=== PATIENT | female | born 1985 | race Caucasian/White ===

== ENCOUNTER 2023-10-14 16:08 | Outpatient (OUT) | payer BC, SELFPAY ==
--- NOTE | 2023-10-14 16:24 | US_ITS ---
[place] [address] Patient Name: HAM SOLIMAN MRN: [id number] date: 1985 Sex: F Assigned Patient Location: LAB Current Patient Location: Accession/Order Number: [id number] Exam Date: 10/14/2023 16:25 Report Date: 10/15/2023 07:07 At the request of: CARLTON WILSON Procedure: US venous doppler LE LT EXAM: US venous doppler LE LT HISTORY: pain in left lower leg M79.662, Shortness of breath R06.02 COMPARISON: None. TECHNIQUE: Grayscale, color and Doppler FINDINGS: Region: Left leg Thrombus: None Flow: Normal Augmentation: Normal Compressibility: Normal US/US venous doppler LE LT IMPRESSION: No deep or superficial vein thrombus in the left leg Electronically authenticated by: WILLIAMS SIDDIQI Date: 10/15/2023 07:07
[2023-10-14 16:27] LABS: Basophils Absolute Auto 0.1 10^3/uL (0.0-0.1); Basophils Percent Auto 0.8 % (0.2-2.0); Eosinophils Absolute Auto 0.2 10^3/uL (0.0-0.7); Eosinophils Percent Auto 2.8 % (0.9-7.0); Hematocrit 39.4 % (36.0-48.0); Hemoglobin 13.5 g/dL (12.0-16.0); Immature Granulocytes Abs Auto 0.02 10^3/uL (0.00-0.03); Immature Granulocytes Pct Auto 0.3 % (0.0-0.5); Lymphocytes Absolute Auto 2.2 10^3/uL (1.2-3.8); Lymphocytes Percent Auto 29.4 % (20.5-60.0); Mean Corpuscular HGB Conc 34.3 g/dL (29.9-35.2); Mean Corpuscular Hemoglobin 32.1 pg (26.7-34.0); Mean Corpuscular Volume 93.8 fL (81.0-99.0); Mean Platelet Volume 11.3 fL (9.5-13.5); Monocytes Absolute Auto 0.7 10^3/uL (0.3-0.8); Neutrophils Absolute Auto 4.3 10^3/uL (1.4-6.5); Neutrophils Percent Auto 57.7 % (43.0-75.0); Platelet Count 265 10^3/uL (150-450); Red Cell Distribution Width 12.4 % (11.0-15.0); White Blood Count 7.5 10^3/uL (4.0-11.0)
[2023-10-14 16:45] LABS: Anion Gap 9.9; BUN Creatinine Ratio 11.1; Calcium 8.8 mg/dL (8.5-10.1); Carbon Dioxide 30.8 mmol/L (21.0-32.0); Chloride 104 mmol/L (98-107); D Dimer 0.24 mg/L FEU (<=0.59); Estimated GFR (African America >60 (>=60); Estimated GFR (Non-African Ame >60 (>=60); Glucose 109 mg/dL (74-106); Potassium 3.7 mmol/L (3.5-5.1); Sodium 141 mmol/L (136-145)
== END 2023-10-14 16:09 | disposition home or self-care (01) ==
LOC: LAB 16:12
PROVIDERS: PCP Internal Medicine; Visit Provider Internal Medicine
DX: M79.662 Pain in left lower leg (principal); R06.02 Shortness of breath
CPT/HCPCS: 36415; 80048; 85025; 85378; 93971

== ENCOUNTER 2024-01-03 09:27 | Outpatient (OUT) | payer BC, SELFPAY ==
--- NOTE | 2024-01-03 09:34 | XR_ITS ---
The [address] [address] Patient Name: HAM SOLIMAN MRN: [id number] date: 1985 Sex: F Assigned Patient Location: [facility] Current Patient Location: [facility] Accession/Order Number: [id number] Exam Date: 01/03/2024 09:39 Report Date: 01/03/2024 14:32 At the request of: CARLTON WILSON Procedure: XR foot LT min 3V PROCEDURE: XR ankle LT min 3V, XR foot LT min 3V HISTORY: Left Foot Pain M79.672 ; left foot and ankle swelling, bruising; no known injury COMPARISON: None. FINDINGS: BONES:Separate corticated ossification adjacent the tip of the medial malleolus favoring sequela of remote injury. Intact ankle joint without appreciable narrowing. No fracture, dislocation, bone lesion. SOFT TISSUES:Distal dorsal soft tissue swelling. EFFUSION:None visible. OTHER: Negative. XR/XR foot LT min 3V IMPRESSION: 1. No acute bone abnormality of the foot or ankle. 2. No significant degenerative joint disease. Electronically authenticated by: JUAN PABLO DESAI Date: 01/03/2024 14:32
--- NOTE | 2024-01-03 09:34 | XR_ITS ---
The [address] [address] Patient Name: HAM SOLIMAN MRN: [id number] date: 1985 Sex: F Assigned Patient Location: [facility] Current Patient Location: [facility] Accession/Order Number: [id number] Exam Date: 01/03/2024 09:39 Report Date: 01/03/2024 14:32 At the request of: CARLTON WILSON Procedure: XR ankle LT min 3V PROCEDURE: XR ankle LT min 3V, XR foot LT min 3V HISTORY: Left Foot Pain M79.672 ; left foot and ankle swelling, bruising; no known injury COMPARISON: None. FINDINGS: BONES:Separate corticated ossification adjacent the tip of the medial malleolus favoring sequela of remote injury. Intact ankle joint without appreciable narrowing. No fracture, dislocation, bone lesion. SOFT TISSUES:Distal dorsal soft tissue swelling. EFFUSION:None visible. OTHER: Negative. XR/XR ankle LT min 3V IMPRESSION: 1. No acute bone abnormality of the foot or ankle. 2. No significant degenerative joint disease. Electronically authenticated by: JUAN PABLO DESAI Date: 01/03/2024 14:32
--- OUTSIDE RECORDS SUMMARY | 2024-01-03 09:49 | XMS_ITS | CCD ---
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 Name Role Phone VaneJessica Unavailable REQUEST, DR GARCIA LISTED Admitting Unavaila ble REQUEST, DR GARCIA LISTED Consulting Unavaila ble REQUEST, DR GARCIA LISTED Attending Unavaila ble STEVE, DR VINCENT Primary Care Unavailable MISC, DOCTOR Attending Unavailable STEVE, DR VINCENT Primary Care Unavailable MISC, DR DUPREE Admitting Unavailable MISC, DR DUPREE Admitting Unavailable MISC, DR DUPREE Consulting Unavailable MISC, DR DUPREE Attending Unavailable STEVE, DR VINCENT Primary Care Unavailable ZIEBBLOSSOM, DR SG Echeverria Consulting Unavailable Agustin Mendez Unavailable Rom RICH Attending Unavailable Medications Current Medications Medication Drug Class(es) Dates Sig (Normalized) Sig (Original) estrogens, conjugated (detention) 0.45 mg oral tablet (5 sources) Estrogen Start: 01-02-2024 take 0.45 mg by mouth once daily Conjugated Estrogens Active 0.45 MG PO Daily January 02, 2024 12:00am take 1 tablet by flory th every twenty-four hours Premarin 0.45 MG 1 tablet Orally Once a day Active omeprazole 20 mg delayed release oral capsule (1 source) Proton Pump Inhibitor Start: 01-03-2024 take 20 mg by mouth once daily Omeprazole Active 20 MG PO Daily January 03, 2024 12:00am Completed/Discontinued Medications Medication Drug Class(es) Dates Sig (Normalized) Sig (Original) 24 hr buPROPion hydrochloride 300 mg extended release oral tablet (4 sources) Aminoketone take 1 tablet by flory th every twenty-four hours buPROPion HCl ER (XL) 300 MG 1 tablet in the morning Orally Once a day Not-Taking/PRN Problems Active Problems Problem Classification Problem Date Documented Date Episodic/Chronic Abdominal pain (11 sources) Left lower quadrant pain; Translations: [Left lower quadrant pain] Onset: 01-18-2017 Episodic Acute and chronic tonsillitis (5 sources) Hypertrophy of tonsils; Translations: [Hypertrophy of tonsils] Chronic Acute bronchitis (4 sources) Acute bronchitis; Translations: [Acute bronchitis due to other specified organisms] Episodic Chronic obstructive pulmonary disease and bronchiectasis (2 sources) Acute exacerbation of chronic obstructive airways disease; Translations: [Chronic obstructive pulmonary disease with (acute) exacerbation] Onset: 09-15-2018 Chronic Complications of surgical procedures or medical care (6 sources) Postsurgical menopause; Translations: [Asymptomatic postprocedural ovarian failure] Chronic Contraceptive and procreative management (6 sources) Contraception care education done; Translations: [Encounter for initial prescription of contraceptive pills] Episodic Endometriosis (2 sources) Endometriosis of pelvic peritoneum; Translations: [Endometriosis of pelvic peritoneum] Chronic Immunizations and screening for infectious disease (4 sources) Sexually transmitted infectious disease; Translations: [Encounter for screening for infections with a predominantly sexual mode of transmission] Episodic Inflammatory diseases of female pelvic organs (4 sources) Acute vaginitis; Translations: [Acute vaginitis] Onset: 01-02-2015 Episodic Malaise and fatigue (6 sources) Fatigue; Translations: [Other fatigue] Episodic Menstrual disorders (4 sources) Dysmenorrhea; Translations: [Dysmenorrhea, unspecified] Chronic Mood disorders (6 sources) Mild recurrent major depression; Translations: [Major depressive disorder, recurrent, mild] Chronic Nonmalignant breast conditions (6 sources) O/E-breast lump-lower out-quad; Translations: [Unspecified lump in the left breast, lower outer quadrant] Episodic Other aftercare (1 source) Other intermediate manager (current) drug therapy Episodic Other connective tissue disease (1 source) Pain in left lower leg Episodic Other connective tissue disease (1 source) Foot pain; Translations: [Pain in left foot] 01-03-2024 Episodic Other ear and sense organ disorders (2 sources) Infection of external ear; Translations: [Other acute infections of external ear] Onset: 04-20-2014 Chronic Other female genital disorders (1 source) Unspecified dyspareunia; Translations: [UNSPECIFIED DYSPAREUNIA] Onset: 11-05-2022 Chronic Other female genital disorders (2 sources) Abnormal vaginal bleeding; Translations: [Other specified abnormal uterine and vaginal bleeding] Chronic Other female genital disorders (4 sources) History of endometriosis; Translations: [Personal history of other diseases of the female genital tract] Episodic Other female genital disorders (2 sources) Disorder of female genital system; Translations: [Personal history of other diseases of the female genital tract] Episodic Other female genital disorders (2 sources) Noninflammatory disorder of the vagina; Translations: [Other specified noninflammatory disorders of vagina] Episodic Other lower respiratory disease (1 source) Shortness of breath Episodic Other screening for suspected conditions (not mental disorders or infectious disease) (10 sources) Mammography abnormal; Translations: [Other abnormal and inconclusive findings on diagnostic imaging of breast] Onset: 11-01-2022 Episodic Other upper respiratory infections (2 sources) Acute maxillary sinusitis; Translations: [Acute recurrent maxillary sinusitis] Episodic Residual codes; unclassified (1 source) Family history of malignant neoplasm of breast; Translations: [FAMILY HX MALIG NEOPLASM OF BREAST] Onset: 11-05-2022 Episodic Residual codes; unclassified (1 source) Family history of malignant neoplasm of digestive organs; Translations: [FAM HX MALIG NEOPLASM DIGESTIV ORGN] Onset: 11-05-2022 Episodic Residual codes; unclassified (2 sources) Postprocedural state finding; Translations: [Other specified postprocedural states] Episodic Substance-related disorders (4 sources) Nicotine dependence; Translations: [Nicotine dependence, cigarettes, with other nicotine-induced disorders] Onset: 03-19-2018 Chronic Urinary tract infections (2 sources) Chronic interstitial cystitis; Translations: [Interstitial cystitis (chronic) without hematuria] Chronic Past or Other Problems Problem Classification Problem Date Documented Da te Episodic/Chronic Ectopic (2 sources) Right tubal without intrauterine ; Translations: [Right tubal without intrauterine ] Onset: 09-23-2009 Episodic Endometriosis (4 sources) Endometriosis; Translations: [Endometriosis of pelvic peritoneum, unspecified] Genitourinary symptoms and ill-defined conditions (2 sources) Dysuria; Translations: [Dysuria] Onset: 04-20-2014 Episodic Other connective tissue disease (2 sources) Pain in limb; Translations: [Pain in soft tissues of limb] Onset: 03-19-2018 Episodic Other nutritional; endocrine; and metabolic disorders (2 sources) Body mass index 25-29 - overweight; Translations: [Body mass index 26.0-26.9, adult] Onset: 03-19-2018 Episodic Other nutritional; endocrine; and metabolic disorders (2 sources) Overweight; Translations: [Overweight] Onset: 03-19-2018 Episodic Otitis media and related conditions (2 sources) Otitis media; Translations: [Otitis media, unspecified, right ear] Onset: 08-10-2013 Episodic Residual codes; unclassified (2 sources) Edema; Translations: [Edema] Onset: 03-19-2018 Episodic Residual codes; unclassified (2 sources) Tobacco user; Translations: [Tobacco use] Onset: 03-19-2018 Episodic Unclassified (2 sources) Acute candidiasis of vulva and vagina; Translations: [Acute candidiasis of vulva and vagina] Results Test Name Value Interpretation Reference Range Facility In office Testingon 08-22-20 23 In office Testing [id number]# 1.00TIFF Normal [facility] Registrationon 08-21-2023 Registration [id number]# 1.00TIFF Normal [facility] Consenton 08-20-2023 Consent [id number]# 1.00TIFF Normal [facility] Registrationon 08-20-2023 Registration [id number]# 1.00TIFF Normal [facility] CBC AUTO DIFFon 12-12-2022 BASO # 0.1 103/ul Normal 0.0-0.1 [facility] Comment on above: Performed By: #### D ATCBC #### [facility] [address] [place] [address] Dr. Wilber Curry Basophils/100 WBC (Bld) 0.6 % Normal 0.2-2.0 [facility] Comment on above: Performed By: #### D ATCBC #### [facility] [address] [place] [address] Dr. Wilber Curry EO # 0.3 103/ul Normal 0.0-0.7 [facility] Comment on above: Performed By: #### D ATCBC #### [facility] [address] [place] [address] Dr. Wilber Curry Eosinophils/100 WBC (Bld) 3.7 % Normal 0.9-7.0 [facility] Comment on above: Performed By: #### D ATCBC #### [facility] [address] [place] [address] Dr. Wilber Curry Erythrocyte distribution width (RBC) [Ratio] 13.1 % Normal 11.0-15.0 [facility] Comment on above: Performed By: #### D ATCBC #### [facility] [address] [place] [address] Dr. Wilber Curry Hematocrit (Bld) [Volume fraction] 37.6 % Normal 36.0-48.0 [facility] Comment on above: Performed By: #### D ATCBC #### [facility] [address] [place] [address] Dr. Wilber Curry Hemoglobin (Bld) [Mass/Vol] 12.9 g/dL Normal 12.0-16.0 [facility] Comment on above: Performed By: #### D ATCBC #### [facility] [address] [place] [address] Dr. Wilber Curry IG # 0.02 10e3/ul Normal 0.00-0.03 [facility] Comment on above: Performed By: #### D ATCBC #### [facility] [address] [place] [address] Dr. Wilber Curry IG % 0.2 % Normal 0.0-0.5 [facility] Comment on above: Performed By: #### D ATCBC #### [facility] [address] [place] [address] Dr. Wilber Curry LYMPH # 2.4 103/ul Normal 1.2-3.8 [facility] Comment on above: Performed By: #### D ATCBC #### [facility] [address] [place] [address] Dr. Wilber Curry Lymphocytes/100 WBC (Bld) 29.6 % Normal 20.5-60.0 [facility] Comment on above: Performed By: #### D ATCBC #### [facility] [address] [place] [address] Dr. Wilber Curry MCH (RBC) [Entitic mass] 31.6 pg Normal 26.7-34.0 [facility] Comment on above: Performed By: #### D ATCBC #### [facility] [address] [place] [address] Dr. Wilber Curry MCHC (RBC) [Mass/Vol] 34.3 g/dL Normal 29.9-35.2 [facility] Comment on above: Performed By: #### D ATCBC #### [facility] [address] [place] [address] Dr. Wilber Curry MCV (RBC) [Entitic vol] 92.2 fL Normal 81.0-99.0 [facility] Comment on above: Performed By: #### D ATCBC #### [facility] [address] [place] [address] Dr. Wilber Curry MONO # 0.6 103/ul Normal 0.3-0.8 [facility] Comment on above: Performed By: #### D ATCBC #### [facility] [address] [place] [address] Dr. Wilber Curry Monocytes/100 WBC (Bld) 6.9 % Normal 1.7-12.0 [facility] Comment on above: Performed By: #### D ATCBC #### [facility] [address] [place] [address] Dr. Wilber Curry NEUT # 4.8 103/ul Normal 1.4-6.5 [facility] Comment on above: Performed By: #### D ATCBC #### [facility] [address] [place] [address] Dr. Wilber Curry Neutrophils/100 WBC (Bld) 59.0 % Normal 43.0-75.0 [facility] Comment on above: Performed By: #### D ATCBC #### [facility] [address] [place] [address] Dr. Wilber Curry Platelet mean volume (Bld) [Entitic vol] 10.9 fL Normal 9.5-13.5 [facility] Comment on above: Performed By: #### D ATCBC #### [facility] [address] [place] [address] Dr. Wilber Curry PLT 270 103/ul Normal 150-450 [facility] Comment on above: Performed By: #### D ATCBC #### [facility] [address] [place] [address] Dr. Wilber Curry RBC 4.08 106/ul Critically low 4.20-5.40 [facility] Comment on above: Performed By: #### D ATCBC #### [facility] [address] [place] [address] Dr. Wilber Curry WBC 8.2 103/ul Normal 4.0-11.0 [facility] Comment on above: Performed By: #### D ATCBC #### [facility] [address] [place] [address] Dr. Wilber Curry TIFAFNIE - TSHon 12-12-2022 TSH 1.211 uIU/mL Normal 0.358-3.740 [facility] Comment on above: Performed By: #### D ATTSH, DATBMP #### [facility] [address] [place] [address] Dr. Wilber Curry TSH RANGE SEE BELOW Normal [facility] Comment on above: Result Comment: <0.3 4 UIU/ml HYPERTHYROID 0.34-5.60 UIU/ml EUTHYROID >5.60 UIU/ml HYPOTHYROID Performed By: #### D ATTSH, DATBMP #### [facility] [address] [place] [address] Dr. Wilber Curry TIFFANIE- BMP WITH LIPIDon 2022 Anion gap [Moles/Vol] 12.1 mmol/L Normal [facility] Comment on above: Performed By: #### D ATTSH, DATBMP #### [facility] [address] [place] [address] Dr. Wilber Curry Calcium [Mass/Vol] 8.3 mg/dL Critically low 8.5-10.1 [facility] Comment on above: Performed By: #### D ATTSH, DATBMP #### [facility] [address] [place] [address] Dr. Wilber Curry Chloride [Moles/Vol] 103 mmol/L Normal 98-107 [facility] Comment on above: Performed By: #### D JUSTIN DATBMP #### [facility] [address] [address] [address] Wilber Curry Cholesterol [Mass/Vol] 147 mg/dL Normal <=200 [facility] Comment on above: Performed By: #### D JUSTIN DATBMP #### [facility] [address] [address] [address] Wilber Curry Cholesterol in HDL [Mass/Vol] 48 mg/dL Normal 40-60 [facility] Comment on above: Performed By: #### D JUSTIN DATBMP #### [facility] [address] [place] [address] Dr. Wilber Curry Cholesterol in LDL [Mass/Vol] 34.6 mg/dL Normal [facility] Comment on above: Performed By: #### D JUSTIN DATBMP #### [facility] [address] [place] [address] Dr. Wilber Curry CO2 [Moles/Vol] 26.4 mmol/L Normal 21.0-32.[address] [facility] Comment on above: Performed By: #### D JUSTIN DATBMP #### [facility] [address] [place] [address] Dr. Wilber Curry Creatinine [Mass/Vol] 0.79 mg/dL Normal 0.55-1.02 [facility] Comment on above: Performed By: #### D JUSTIN DATBMP #### [facility] [address] [place] [address] Dr. Wilber Curry EGFR-AF BOTSWANAN >60 Normal >=[address] [facility] Comment on above: Performed By: #### D JUSTIN DATBMP #### [facility] [address] [place] [address] Dr. Wilber Curry EGFR-NON AF BOTSWANAN >60 Normal >=60 [facility] Comment on above: Performed By: #### D JUSTIN DATBMP #### [facility] [address] [address] [address] Wilber Curry Glucose [Mass/Vol] 95 mg/dL Normal 74-106 [facility] Comment on above: Performed By: #### D JUSTIN DATBMP #### [facility] [address] [place] [address] Dr. Wilber Curry HDL NORMAL > or = 60 mg/dl - LO W CARDIOVASCULAR RISK <40 mg/dl - HIGH CARDIOVASCULAR RISK Normal [facility] Comment on above: Performed By: #### D JUSTIN DATBMP #### [facility] [address] [address] [address] Wilber Curry LDL CALC NORMAL SEE BELOW Normal [facility] Comment on above: Result Comment: <100 mg/dl OPTIMAL 100 - 129 mg/dl NEAR OR ABOVE OPTIMAL 130 - 159 mg/dl BORDERLINE HIGH 160 - 189 mg/dl HIGH >190 mg/dl VERY HIGH Performed By: #### D JUSTIN DATBMP #### [facility] [address] [address] [address] Wilber Curry Potassium [Moles/Vol] 3.5 mmol/L Normal 3.5-5.1 [facility] Comment on above: Performed By: #### D JUSTIN DATBMP #### [facility] [address] [address] [address] Wilber Curry Sodium [Moles/Vol] 138 mmol/L Normal 136-145 [facility] Comment on above: Performed By: #### D JUSTIN DATBMP #### [facility] [address] [address] [address] Wilber Curry Triglyceride [Mass/Vol] 322 mg/dL Critically high <=150 [facility] Comment on above: Performed By: #### D JUSTIN DATBMP #### [facility] [address] [address] [address] Wilber Curry Urea nitrogen [Mass/Vol] 11.0 mg/dL Normal 7.0-18.0 [facility] Comment on above: Performed By: #### Pelon ANDERSON DATBMP #### [facility] [address] [address] [address] Wilber Curry Urea nitrogen/Creatinine [Mass ratio] 13.9 mg/mg Normal [facility] Comment on above: Performed By: #### D JUSTIN DATBMP #### [facility] [address] [address] [address] Wilber Curry VLDL CALC 64.4 mg/dL Normal [facility] Comment on above: Performed By: #### D TIFFANIE ANDERSONBMP #### [facility] [address] [address] [address] Wilber Curry GLYCOHEMOGLOBIN A1Con 2022 ADA RECOMMENDATION SEE BELOW Normal [facility] Comment on above: Result Comment: ADA RECOMMENDED LIMIT 4.0 - 6.0 ADA THERAPEUTIC TARGET < 7.0 ACTION SUGGESTED > 7.0 Performed By: #### D ATA1C #### [facility] [address] [place] [address] Dr. Wilber Curry Glucose [Mass/Vol] 117 mg/dL Normal [facility] Comment on above: Performed By: #### D ATA1C #### [facility] [address] [address] [address] Wilber Curry HbA1c (Bld) [Mass fraction] 5.7 % Normal 4.5-6.2 [facility] Comment on above: Performed By: #### D ATA1C #### [facility] [address] [place] [address] Dr. Wilber Curry MG MAMM SCREEN 3D CONRADO CADon 11-01-2022 MG MAMM SCREEN 3D CONRADO CAD Patient: HAM SOLIMAN Exam Date: 11/01/2022 : 1985 Gender:F Ordering : GUANACO WARD Admission #: [id number] Family : Order #: [id number] CLICK HERE TO VIEW EXAM RADIOLOGY REPORT PROCEDURE: MAMMOGRAM SCREENING 3D BILATERAL CAD COMPARISON: MG MAMM SCREEN 3D CONRADO CAD, 05/12/2021. US BREAST RIGHT LIMITED, 05/16/2021. MAMMO POST BIOPSY RIGHT, 05/25/2021. MG MAMM DX 3D RT CAD, 11/09/2021. INDICATIONS: Screening mammography Calculator Name NCI Breast Cancer Risk Assessment Tool 5 Year Breast Cancer Risk 0.40% Lifetime Breast Cancer Risk 10.30% Personal Breast Cancer No Personal Ovarian Cancer No Treatments None Family Cancers Grandmother-maternal with breast cancer at age 75; Grandmother-maternal with stomach cancer at age 85. LOCATION: [facility] BREAST COMPOSITION: Heterogeneously dense,which may obscure small masses. FINDINGS: DIAGNOSTIC CATEGORY 1--NEGATIVE. RIGHT BREAST: No significant suspicious finding. Biopsy marker clip within the lower-inner quadrant, mid breast. No significant change has occurred. LEFT BREAST: No significant suspicious finding. No significant change has occurred. RECOMMENDATIONS: CLINICAL EVALUATION. PLEASE NOTE: A NORMAL MAMMOGRAM DOES NOT EXCLUDE THE POSSIBILITY OF BREAST CANCER. A CLINICALLY SUSPICIOUS PALPABLE LUMP SHOULD BE BIOPSIED. Dictated by: Sg Shin M.D. on 11/01/2022 at 14:17 Approved by: Sg Shin M.D. on 11/01/2022 at 14:43 Normal [facility] US PELVIS AND TRANSVAGon US PELVIS AND TRANSVAG EXAMINATION: US PELVIS AND TRANSVAG HISTORY: Pelvic and perineal pain ; left pelvic pain for 6 months COMPARISON: Ultrasound pelvis 11/26/2020 TECHNIQUE: Transabdominal and transvaginal sonographic examination. FINDINGS: UTERUS: Hysterectomy. RIGHT OVARY: Oophorectomy LEFT OVARY: Oophorectomy CUL-DE-SAC: Unremarkable. No significant free fluid. BLADDER: Unremarkable. OTHER: 6 mm echogenic structure with posterior shadowing within right adnexa; nonspecific and may represent a calcification or surgical clip. IMPRESSION: 1. Prior hysterectomy and bilateral oophorectomy. No abnormal or suspicious findings to account for patient's symptoms. Electronically authenticated by: SG SHIN Date: 2022-11-01 11:32 Normal [facility] Vital Signs Date Time Vital Sign Value Performing Clinician Facility 01-03-2024 08:43-0400 Body height 166.37 cm [facility] 01-03-2024 [id number] Body mass index (BMI) [Ratio] 36.7 kg/m2 [facility] 01-03-2024 08:43-0400 Body weight 101.6 kg [facility] 01-03-2024 08:43-0400 Diastolic blood pressure 81 mm[Hg] [facility] 01-03-2024 08:43-0400 Heart rate 92 /min [facility] 01-03-2024 08:43-0400 Respiratory rate 12 /min [facility] 01-03-2024 08:43-0400 Systolic blood pressure 125 mm[Hg] [facility] 10-14-2023 15:15-0500 Body height 166.37 cm Agustin Ball Other [facility] 10-14-2023 15:15-0500 Body mass index (BMI) [Ratio] 33.3 kg/m2 Agustin Ball Other [facility] Other 10-14-2023 15:15-0500 Body weight 92.17 kg Agustin Ball Other [facility] Other 10-14-2023 15:15-0500 Body weight 92.16 kg [facility] 10-14-2023 15:15-0500 Diastolic blood pressure 82 mm[Hg] Agustin Ball Other [facility] 10-14-2023 15:15-0500 Respiratory rate 12 /min Agustin Ball Other [facility] Other 10-14-2023 15:15-0500 Systolic blood pressure 116 mm[Hg] Agustin Ball Other [facility] 10-29-2022 10:00-0500 Body height 166.37 cm Jessica Cifuentes Other [facility] Other 10-29-2022 10:00-0500 Body mass index (BMI) [Ratio] 32.61 kg/m2 Jessica Cifuentes Other [facility] Other 10-29-2022 10:00-0500 Body weight 90.27 kg Jessica Cifuentes Other [facility] Other 10-29-2022 10:00-0500 Diastolic blood pressure 82 mm[Hg] Jessica Cifuentes Other [facility] Other 10-29-2022 10:00-0500 SaO2% (BldA) [Mass fraction] 96 % Jessica Vane Other [facility] Other 10-29-2022 10:00-0500 Systolic blood pressure 124 mm[Hg] Jessica Cifuentes Other [facility] Other Encounters Encounter Date Encounter Type Care Provider Facility Start: 01-03-2024 End: 01-03-2024 ambulatory [facility] Work Phone: Start: 01-03-2024 End: 01-03-2024 Patient encounter procedure [facility] Work Phone: Start: 10-15-2023 End: 10-15-2023 ambulatory Agustin Mendez Other [facility] Other Start: 10-15-2023 Telephone encounter Agustin FIERRO [facility] Start: 10-14-2023 End: 10-14-2023 ambulatory Agustin Mendez Other [facility] Other Start: 10-14-2023 Office outpatient vi sit 15 minutes Agustin Mendez [facility] Start: 10-14-2023 End: 10-14-2023 Patient encounter procedure [facility]- Start: 08-20-2023 End: 08-21-2023 ambulatory Rom RICH Facility:[facility] Start: 12-13-2022 End: 12-13-2022 ambulatory Agustin Mendez Other [facility] Other Start: 12-13-2022 Telephone encounter Agustin FIERRO [facility] Start: 12-12-2022 End: 12-13-2022 ambulatory NONE LISTED REQUEST Facility: Start: 11-01-2022 End: 11-02-[address] DOCTOR NEGRON Facility:[facility] Start: 10-29-2022 End: 10-29-2022 ambulatory Jessica Cifuentes Other [facility] Other Start: 10-29-2022 Office outpatient vi sit 15 minutes Jessica Cifuentes [facility] Start: 07-31-2021 Gynecological examin ation abnormal Agustin Mendez Other [employer] Other Start: 07-31-2021 Gynecological examin ation normal Agustin Mendez Other [employer] Other Plan of Treatment Date Care Activity Detail Author XR Ankle - left GE 3 Views F [facility] XR Foot - left GE 3 Views Fi [facility] Payers Date Payer Category Payer Unknown [id number] [id number] 1986 Unknown [id number] [id number] [id number] 1958 [place] [employer] [id number] 1958 Self-pay [id number] [facility] Blue Shield [id number] Unknown [id number] [id number] [id number] Unknown [place] BC/BS [id number] Unknown [employer] BC/BS [id number] Social History Date Type Detail Facility Unknown if ever smoked [employer] Other Sex Assigned At Sex Assigned At Bir th [employer] Other Start: 1985 Sex Assigned At Female F [facility] Evaluation note 10-14-2023 Note Date & Type Note Facility 10-14-2023 Evaluation note Encounter Date Diagnosis Assessment Notes Sep, Pain of left calf (ICD-10 - M79.662) Heat/ice and elevation. Stretching exercises. r/o DVT Discussed possible etiology w/ muscle cramping, injury and DVT reviewed Sep, Shortness of breath (ICD-10 - R06.02) Mild w/o associated s/s intercurrent infection. Denies CP or tachycardia May consider CTA if findings of DVT present Sep, Current use of estrogen therapy (ICD-10 - Z79.899) Increases risk for DVT [employer] Other Evaluation note 10-29-2022 Note Date & Type Note Facility 10-29-2022 Evaluation note Encounter Date Diagnosis Assessment Notes Oct, Chronic tonsillar hypertrophy (ICD-10 - J35.1) Pt interested in tonsillectomy . Discussed this is not often done in adults, but she requests referral to Dr. Rose. Her infections have been treated in the past. Relates to snoring and trouble breathing at times. [employer] Other Evaluation note Note Date & Type Note Facility Evaluation note No Information [employer] Other Evaluation note Note Date & Type Note Facility Evaluation note No assessment information [facility] Work Phone: History general Narrative - Reported Note Date & Type Note Facility History general Narrative - Reported Type Medical History Abnormal mammogram of right [address] Medical History Acute bronchitis due to other specified organisms Medical History Abdominal pain, acut e, left lower quadrant Medical History Mild episode of recu rrent major depressive disorder Medical History Surgical menopause Medical History Endometriosis of pel todd peritoneum, unspecified Medical History HISTORY OF PELVIC SURGERY Medical History History of endometriosis Medical History Mass of lower outer quadrant of left breast Medical History Fatigue Surgical History BX BREAST 1ST LESION US IMAG Surgical History REMOVE VAGINA LESION Surgical History SALPINGECTOMY Surgical History DIAG LAPARO SEPARATE PROC Surgical History X2 Surgical History Total hysterectomy Lap 08/2017 Surgical History Pelvic mass removal 05/2019 Hospitalization History SEE SURGICAL HX [employer] Other Reason for visit Narrative Note Date & Type Note Facility Reason for visit Narrative Referral- Pat ient wanted in now and requested Dr. Cifuentes [facility] [employer] Other Reason for Referral Reason 11/21/22 @ 10:50 [facility] - chronic tonsillitis Diagnosis 1 Chronic tonsillar hy pertrophy (J35.1) Referral Organization [facility] Deborah chong Referring Provider First Name Jessica Referring Provider Last Name Vane Referring Provider Specialty Family Medi cine Referred Organization [facility] Referred Provider [employer] Referred Address ,[place], [place],[address] Referred Provider Specialty Ear, Nose an d Throat Referral Priority Routine Referral Appointment Date 2022-11-21 General Notes Karla Marcano 11:35:23 AM >received today, attachments made, notes locked and referral faxed P2P Karla Marcano 11/05/2022 01:38:35 PM >faxed first attempt letter Karla Marcano 11/06/2022 08:53:54 AM >received fax with appt date and time Karla Marcano 11/22/2022 08:53:18 AM >notes in chart and reviewed. closing referral at this time. Summary Purpose Family History Relationship Condition Age at Onset Recorded Date/T thomas father Hypertension Unknown Advance Directives Advance Directive Response Recorded Date/ Time Advance Directives No January 02 024 8:32am Chief Complaint and Reason for Visit Chief Complaint Left Calf Pain lower leg edema Additional Source Comments INFORMATION SOURCE (unrecogn ized section and content) DATE CREATED AUTHOR 12/13/2022 [facility] DATE CREATED AUTHOR AUTHOR'S ORGANIZ ATION 08/25/2023 [facility] REASON FOR VISIT (unrecogniz ed section and content) Lab ResultsLab resultsleft c [facility] Care Teams (unrecognized sec tion and content) Team Status: Active Member Role Status Dates Agustin Mendez DO Primary Care Provider Active Team Status: Inactive Member Role Status Dates Agustin Mendez DO Attending Provider Active Sta rt: October 14, 2023 End: October 14, 2023 Team Status: Inactive Member Role Status Dates Agustin Mendez DO Primary Care Provide r, Attending Provider Active Start: January 03, 2024 End: January 03, 2024 Goals (unrecognized section and content) Goals may be documented in a n alternate section FOR RECORDS PERTAINING TO PATIENTS WHO ARE OR HAVE BEEN ENROLLED IN A CHEMICAL DEPENDENCY/SUBSTANCEABUSE PROGRAM, SOME INFORMATION MAY BE OMITTED. This clinical summary was aggregated from multiple sources. Caution should be exercised in using it in the provision of clinical care. This summary normalizes information from multiple sources, and as a consequence, information in this document may materially change the coding, format and clinical context of patient data. In addition, data may be omitted in some cases. CLINICAL DECISIONS SHOULD BE BASED ON THE PRIMARY CLINICAL RECORDS. [facility] provides no warranty or guarantee of the accuracy or completeness of information in this document.
== END 2024-01-03 09:28 | disposition home or self-care (01) ==
LOC: RAD 09:29
PROVIDERS: PCP Internal Medicine; Visit Provider Internal Medicine
DX: M79.672 Pain in left foot (principal)
CPT/HCPCS: 73610; 73630

== ENCOUNTER 2024-01-24 06:42 | Outpatient (OUT) | payer BC, SELFPAY ==
--- OUTSIDE RECORDS SUMMARY | 2024-01-24 06:46 | XMS_ITS | CCD ---
Author Organization [facility] Care Team Providers Care Engineering Assistant Name Role Phone Vane Jessica Unavailable REQUEST, DR GARCIA LISTED Admitting Unavaila [...] Unavailable STEVE, DR VINCENT Primary Care Unavailable LLOYD, DR SG Eche[employer] Consult[employer] Unavailable Agustin Mendez Unavailable Rom RICH Attending Unavailable Medications Current Medications Medication Drug Class(es) Dates Sig (Normalized) Sig (Original) estrogens, conjugated (jail) 0.45 mg oral tablet (5 sources) Estrogen [...] quadrant] Episodic Other aftercare (1 source) Other longwall foreman (current) drug therapy Episodic Other connective tissue [...] office Testingon 08-22-20 23 In office Testing [id number]# 1.00TIFF Normal [facility] Registrationon 08-21-2023 Registration [id number]# 1.00TIFF Normal [facility] Consenton 08-20-2023 Consent [id number]# 1.00TIFF Normal [facility] Registrationon 08-20-2023 Registration [id number]# 1.00TIFF Normal [facility] CBC AUTO DIFFon 12-12-2022 BASO # 0.1 103/ul Normal 0.0-0.1 [facility] Comment on above: Performed By: #### D ATCBC #### [facility] [address] [place] [address] Dr. Wilber Curry Basophils/100 WBC (Bld) 0.6 % Normal 0.2-2.0 [facility] Comment on above: Performed By: #### D ATCBC #### [facility] [address] [place] [address] Dr. Wilber Curry EO # 0.3 103/ul Normal 0.0-0.7 [facility] Comment on above: Performed By: #### D ATCBC #### [facility] [address] [place] [address] Dr. Wilber Curry Eosinophils/100 WBC (Bld) 3.7 % Normal 0.9-7.0 [facility] Comment on above: Performed By: #### D ATCBC #### [facility] [address] [place] [address] Dr. Wilber Curry Erythrocyte distribution width (RBC) [Ratio] 13.1 % Normal 11.0-15.0 [facility] Comment on above: Performed By: #### D ATCBC #### [facility] [address] [place] [address] Dr. Wilber Curry Hematocrit (Bld) [Volume fraction] 37.6 % Normal 36.0-48.0 [facility] Comment on above: Performed By: #### D ATCBC #### [facility] [address] [place] [address] Dr. Wilber Curry Hemoglobin (Bld) [Mass/Vol] 12.9 g/dL Normal 12.0-16.0 [facility] Comment on above: Performed By: #### D ATCBC #### [facility] [address] [place] [address] Dr. Wilber Curry IG # 0.02 10e3/ul Normal 0.00-0.03 [facility] Comment on above: Performed By: #### D ATCBC #### [facility] [address] [place] [address] Dr. Wilber Curry IG % 0.2 % Normal 0.0-0.5 [facility] Comment on above: Performed By: #### D ATCBC #### [facility] [address] [place] [address] Dr. Wilber Curry LYMPH # 2.4 103/ul Normal 1.2-3.8 [facility] Comment on above: Performed By: #### D ATCBC #### [facility] [address] [place] [address] Dr. Wilber Curry Lymphocytes/100 WBC (Bld) 29.6 % Normal 20.5-60.0 [facility] Comment on above: Performed By: #### D ATCBC #### [facility] [address] [place] [address] Dr. Wilber Curry MCH (RBC) [Entitic mass] 31.6 pg Normal 26.7-34.0 [facility] Comment on above: Performed By: #### D ATCBC #### [facility] [address] [place] [address] Dr. Wilber Curry MCHC (RBC) [Mass/Vol] 34.3 g/dL Normal 29.9-35.2 [facility] Comment on above: Performed By: #### D ATCBC #### [facility] [address] [place] [address] Dr. Wilber Curry MCV (RBC) [Entitic vol] 92.2 fL Normal 81.0-99.0 [facility] Comment on above: Performed By: #### D ATCBC #### [facility] [address] [place] [address] Dr. Wilber Curry MONO # 0.6 103/ul Normal 0.3-0.8 [facility] Comment on above: Performed By: #### D ATCBC #### [facility] [address] [place] [address] Dr. Wilber Curry Monocytes/100 WBC (Bld) 6.9 % Normal 1.7-12.0 [facility] Comment on above: Performed By: #### D ATCBC #### [facility] [address] [place] [address] Dr. Wilber Curry NEUT # 4.8 103/ul Normal 1.4-6.5 [facility] Comment on above: Performed By: #### D ATCBC #### [facility] [address] [place] [address] Dr. Wilber Curry Neutrophils/100 WBC (Bld) 59.0 % Normal 43.0-75.0 [facility] Comment on above: Performed By: #### D ATCBC #### [facility] [address] [place] [address] Dr. Wilber Curry Platelet mean volume (Bld) [Entitic vol] 10.9 fL Normal 9.5-13.5 [facility] Comment on above: Performed By: #### D ATCBC #### [facility] [address] [address] [address] Wilber Curry PLT 270 103/ul Normal 150-450 [facility] Comment on above: Performed By: #### D ATCBC #### [facility] [address] [address] [address] Wilber Curry RBC 4.08 106/ul Critically low 4.20-5.40 [facility] Comment on above: Performed By: #### D ATCBC #### [facility] [address] [address] [address] Wilber Curry WBC 8.2 103/ul Normal 4.0-11.0 [facility] Comment on above: Performed By: #### D ATCBC #### [facility] [address] [place] [address] Dr. Wilber Curry TIFFANIE - TSHon 12-12-2022 TSH 1.211 uIU/mL Normal 0.358-3.740 [facility] Comment on above: Performed By: #### D ATTSH DATBMP #### [facility] [address] [place] [address] Dr. Wilber Curry TSH RANGE SEE BELOW Normal [facility] Comment on above: Result Comment: <0.3 4 UIU/ml HYPERTHYROID 0.34-5.60 UIU/ml EUTHYROID >5.60 UIU/ml HYPOTHYROID Performed By: #### D ATTSH DATBMP #### [facility] [address] [place] [address] Dr. Wilber Curry TIFFANIE- BMP WITH LIPIDon 2022 Anion gap [Moles/Vol] 12.1 mmol/L Normal [facility] Comment on above: Performed By: #### D ATTSH, DATBMP #### [facility] [address] [place] [address] Dr. Wilber Curry Calcium [Mass/Vol] 8.3 mg/dL Critically low 8.5-10.1 [facility] Comment on above: Performed By: #### D ATTSH, DATBMP #### [facility] [address] [address] [address] Wilber Curry Chloride [Moles/Vol] 103 mmol/L Normal 98-107 [facility] Comment on above: Performed By: #### D ATTJUAN DANIEL, DATBMP #### [facility] [address] [address] [address] Wilber Curry Cholesterol [Mass/Vol] 147 mg/dL Normal <=200 [facility] Comment on above: Performed By: #### D ATTSH, DATBMP #### [facility] [address] [address] [address] Wilber Curry Cholesterol in HDL [Mass/Vol] 48 mg/dL Normal 40-60 [facility] Comment on above: Performed By: #### D ATTJUAN DANIEL, DATBMP #### [facility] [address] [address] [address] Wilber Curry Cholesterol in LDL [Mass/Vol] 34.6 mg/dL Normal [facility] Comment on above: Performed By: #### D ATTJUAN DANIEL, DATBMP #### [facility] [address] [address] [address] Wilber Curry CO2 [Moles/Vol] 26.4 mmol/L Normal 21.0-32.0 [facility] Comment on above: Performed By: #### D ATTJUAN DANIEL, DATBMP #### [facility] [address] [place] [address] Dr. Wilber Curry Creatinine [Mass/Vol] 0.79 mg/dL Normal 0.55-1.02 [facility] Comment on above: Performed By: #### D ATTSH, DATBMP #### [facility] [address] [address] [address] Wilber Curry EGFR-AF [place]IZ[place] >60 Normal >=60 [facility] Comment on above: Performed By: #### D ATTSH, DATBMP #### [facility] [address] [address] [address] Wilber Curry EGFR-NON AF [place]IZ[place] >60 Normal >=60 [facility] Comment on above: Performed By: #### D ATTSH, DATBMP #### [facility] [address] [address] [address] Wilber Curry Glucose [Mass/Vol] 95 mg/dL Normal 74-106 [facility] Comment on above: Performed By: #### D JUSTIN DATBMP #### [facility] [address] [address] [address] Wilber Curry HDL NORMAL > or = 60 mg/dl - LO W CARDIOVASCULAR RISK <40 mg/dl - HIGH CARDIOVASCULAR RISK Normal [facility] Comment on above: Performed By: #### D JUSTIN DATBMP #### [facility] [address] [address] [address] Wilber Curry LDL CALC NORMAL SEE BELOW Normal [facility] Comment on above: Result Comment: <100 mg/dl OPTIMAL 100 - 129 mg/dl NEAR OR ABOVE OPTIMAL 130 - 159 mg/dl BORDERLINE HIGH 160 - 189 mg/dl HIGH >190 mg/dl VERY HIGH Performed By: #### Pelon ANDERSON DATBMP #### [facility] [address] [address] [address] Wilber Curry Potassium [Moles/Vol] 3.5 mmol/L Normal 3.5-5.1 [facility] Comment on above: Performed By: #### D JUSTIN DATBMP #### [facility] [address] [address] [address] Wilber Curry Sodium [Moles/Vol] 138 mmol/L Normal 136-145 [facility] Comment on above: Performed By: #### Pelon ANDERSON DATBMP #### [facility] [address] [address] [address] Wilber Curry Triglyceride [Mass/Vol] 322 mg/dL Critically high <=150 [facility] Comment on above: Performed By: #### D JUSTIN DATBMP #### [facility] [address] [address] [address] Wilber Curry Urea nitrogen [Mass/Vol] 11.0 mg/dL Normal 7.0-18.0 [facility] Comment on above: Performed By: #### Pelon ANDERSON DATBMP #### [facility] [address] [address] [address] Wilber Curry Urea nitrogen/Creatinine [Mass ratio] 13.9 mg/mg Normal [facility] Comment on above: Performed By: #### D JUSTIN DATBMP #### [facility] [address] [address] [address] Wilber Curry VLDL CALC 64.4 mg/dL Normal [facility] Comment on above: Performed By: #### D JUSTIN DATBMP #### [facility] [address] [address] [address] Wilber Curry GLYCOHEMOGLOBIN A1Con 2022 ADA RECOMMENDATION SEE BELOW Normal [facility] Comment on above: Result Comment: ADA RECOMMENDED LIMIT 4.0 - 6.0 ADA THERAPEUTIC TARGET < 7.0 ACTION SUGGESTED > 7.0 Performed By: #### D ATA1C #### [facility] [address] [address] [address] Wilber Curry Glucose [Mass/Vol] 117 mg/dL Normal [facility] Comment on above: Performed By: #### D ATA1C #### [facility] [address] [address] [address] Wilber Curry HbA1c (Bld) [Mass fraction] 5.7 % Normal 4.5-6.2 [facility] Comment on above: Performed By: #### D ATA1C #### [facility] [address] [address] [address] Wilber Curry MG MAMM SCREEN 3D CONRADO CADon 11-01-2022 MG MAMM SCREEN 3D CONRADO CAD Patient: HAM SOLIMAN Exam Date: 11/01/2022 : 1985 Gender:F Ordering : GUANACO WARD Admission #: [id number] Family : Order #: [id number] CLICK HERE TO VIEW EXAM RADIOLOGY REPORT [...] stomach cancer at age 86. LOCATION: [facility] BREAST COMPOSITION: Heterogeneously dense,which may obscure [...] Shin M.D. on 11/01/2022 at 14:43 Normal [facility] US PELVIS AND TRANSVAGon US PELVIS [...] by: SG SHIN Date: 2022-11-01 11:32 Normal [facility] Vital Signs Date Time Vital Sign Value Performing Clinician Facility 01-03-2024 08:43-0400 Body height 166.37 cm [facility] 01-03-2024 08:43-0400 Body mass index (BMI) [Ratio] 36.7 kg/m2 [facility] 01-03-2024 08:43-0400 Body weight 101.6 kg [facility] 01-03-2024 08:43-0400 Diastolic blood pressure 81 mm[Hg] [facility] 01-03-2024 08:43-0400 Heart rate 92 /min [facility] 01-03-2024 08:43-0400 Respiratory rate 12 /min [facility] 01-03-2024 08:43-0400 Systolic blood pressure 125 mm[Hg] [facility] 10-14-2023 15:15-0500 Body height 166.37 cm Agustin Ball Other [facility] 10-14-2023 15:15-0500 Body mass index (BMI) [Ratio] 33.3 kg/m2 Agustin Ball Other [facility] Other 10-14-2023 15:15-0500 Body weight 92.17 kg Agustin Ball Other [facility] Other 10-14-2023 15:15-0500 Body weight 92.16 kg [facility] 10-14-2023 15:15-0500 Diastolic blood pressure 82 mm[Hg] Agustin Ball Other [facility] 10-14-2023 15:15-0500 Respiratory rate 12 /min Agustin Ball Other [facility] Other 10-14-2023 15:15-0500 Systolic blood pressure 116 mm[Hg] Agustin Ball Other [facility] 10-29-2022 10:00-0500 Body height 166.37 cm Jessica Cifuentes Other [facility] Other 10-29-2022 10:00-0500 Body mass index (BMI) [Ratio] 32.61 kg/m2 Jessica Cifuentes Other [facility] Other 10-29-2022 10:00-0500 Body weight 90.27 kg Jessica Cifuentes Other [facility] Other 10-29-2022 10:00-0500 Diastolic blood pressure 82 mm[Hg] Jessica Cifuentes Other [facility] Other 10-29-2022 10:00-0500 SaO2% (BldA) [Mass fraction] 96 % Jessica Cifuentes Other [facility] Other 10-29-2022 10:00-0500 Systolic blood pressure 124 mm[Hg] Jessica Cifuentes Other [facility] Other Encounters Encounter Date Encounter Type Care Provider Facility Start: 01-03-2024 End: 01-03-2024 ambulatory [facility] Work Phone: Start: 01-03-2024 End: 01-03-2024 Patient encounter procedure [facility] Work Phone: Start: 10-15-2023 End: 10-15-2023 ambulatory Agustin Mendez Other [facility] Other Start: 10-15-2023 Telephone encounter Agustin FIERRO [facility] Start: 10-14-2023 End: 10-14-2023 ambulatory Agustin Mendez Other [facility] Other Start: 10-14-2023 Office outpatient vi sit 15 minutes Agustin Mendez [facility] Start: 10-14-2023 End: 10-14-2023 Patient encounter procedure [facility]- Start: 08-20-2023 End: 08-21-2023 ambulatory [facility] Facility:[facility] Start: 12-13-2022 End: 12-13-2022 ambulatory Agustin Mendez Other [facility] Other Start: 12-13-2022 Telephone encounter Agustin FIERRO [facility] Start: 12-12-2022 End: 12-13-[address] NONE LISTED REQUEST Facility: Start: 11-01-2022 End: 11-02-[address] DOCTOR BASILIO Facility:[facility] Start: 10-29-2022 End: 10-29-2022 ambulatory Jessica Cifuentes Other [facility] Other Start: 10-29-2022 Office outpatient vi sit 15 minutes Jessica Cifuentes [facility] Start: 07-31-2021 Gynecological examin ation abnormal Agustin Mendez Other [facility] Other Start: 07-31-2021 Gynecological examin ation normal Agustin Mendez Other [facility] Other Plan of Treatment Date Care Activity Detail Author XR Ankle - left GE 3 Views F [facility] XR Foot - left GE 3 Views Fi [facility] Payers Date Payer Category Payer Unknown [id number] [id number] 1985 Unknown [id number] 1958 [employer] [id number] 1958 Self-pay [id number] [employer] [id number] Unknown [id number] [id number] Unknown [employer] [id number] Unknown [employer] [id number] Social History Date Type Detail Facility Unknown if ever smoked [facility] Other Sex Assigned At Sex Assigned At Bir th [facility] Other Start: 1985 Sex Assigned At Female F [facility] Evaluation note 10-14-2023 Note Date & [...] (ICD-10 - Z79.899) Increases risk for DVT [facility] Other Evaluation note 10-29-2022 Note Date & Type Note Facility 10-29-2022 Evaluation note Encounter Date Diagnosis Assessment Notes Oct, Chronic tonsillar hypertrophy (ICD-10 - J35.1) Pt interested in tonsillectomy . Discussed this is not often done in adults, but she requests referral to Dr. Rose. Her infections have been treated in the past. Relates to snoring and trouble breathing at times. [facility] Other Evaluation note Note Date & Type Note Facility Evaluation note No Information [facility] Other Evaluation note Note Date & Type Note Facility Evaluation note No assessment information [facility] Work Phone: History general Narrative - Reported [...] removal 05/2019 Hospitalization History SEE SURGICAL HX [facility] Other Reason for visit Narrative Note Date & Type Note Facility Reason for visit Narrative Referral- Pat anuragkrzysztof wanted in now and requested Dr. Cifuentes [facility] Other Reason for Referral Reason 11/21/22 @ 10:50 [facility] [place] [facility] - chronic tonsillitis Diagnosis 1 Chronic tonsillar hy pertrophy (J35.1) Referral Organization [facility] Deborah chong Referring Provider First Name Jessica Referring Provider Last Name Vane Referring Provider Specialty Family [facility] Referred Organization [facility] Referred Provider Vale Rose Referred Address ,[place], [place],[address] Referred Provider Specialty Ear, Nose an d [...] content) DATE CREATED AUTHOR 12/13/2022 [facility] [place] [employer] DATE CREATED AUTHOR AUTHOR'S ORGANIZ ATION 08/25/2023 [facility] REASON FOR VISIT (unrecogniz ed section and content) Lab ResultsLab resultsleft c group home pain Care Teams (unrecognized sec tion and [...] BE BASED ON THE PRIMARY CLINICAL RECORDS. [facility] [employer] [facility]. provides no warranty or guarantee of the accuracy or completeness of information in this document.
[2024-01-24 07:12] LABS: Erythrocyte Sedimentation Rate 13 mm/hr (<=20)
[2024-01-24 07:33] LABS: C Reactive Protein 0.59 mg/dL (<=0.50)
[2024-01-25 06:09] LABS: Rheumatoid Factor (RF) <10.0 IU/mL (<14.0)
[2024-01-25 12:08] LABS: Anti-CCP Ab, IgG/IgA 4 units (0-19)
[2024-01-27 13:07] LABS: ANA Direct Negative (Negative)
== END 2024-01-24 06:43 | disposition home or self-care (01) ==
LOC: LAB 06:44
PROVIDERS: PCP Internal Medicine; Visit Provider Internal Medicine
DX: R60.9 Edema, unspecified (principal); R53.83 Other fatigue; R63.5 Abnormal weight gain; M25.50 Pain in unspecified joint
CPT/HCPCS: 36415; 85652; 86038; 86140; 86200; 86431

== ENCOUNTER 2024-02-04 07:45 | Outpatient (OUT) | payer BC, SELFPAY ==
--- OUTSIDE RECORDS SUMMARY | 2024-02-04 07:48 | XMS_ITS | CCD ---
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 Episodic Other connective tissue [...] office Testingon 08-22-20 23 In office Testing [id number]# 1.00TIFF Normal [facility] Registrationon 08-21-2023 Registration [id number]# 1.00TIFF Normal [facility] Consenton 08-20-2023 Consent [id number]# 1.00TIFF Normal [facility] Registrationon 08-20-2023 Registration [id number]# 1.00TIFF Normal [facility] CBC AUTO DIFFon 12-12-2022 BASO # 0.1 103/ul Normal 0.0-0.1 [facility] Comment on above: Performed By: #### D ATCBC #### [facility] [address] [place] [address] Dr. Wilber Curry Basophils/100 WBC (Bld) 0.6 % Normal 0.2-2.0 [facility] Comment on above: Performed By: #### D ATCBC #### [facility] [address] [place] [address] Dr. Wilber Curry EO # 0.3 103/ul Normal 0.0-0.7 [facility] Comment on above: Performed By: #### D ATCBC #### [facility] [address] [place] [address] Dr. Wilber Curry Eosinophils/100 WBC (Bld) 3.7 % Normal 0.9-7.0 [facility] Comment on above: Performed By: #### D ATCBC #### [facility] [address] [place] [address] Dr. Wilber Curry Erythrocyte distribution width (RBC) [Ratio] 13.1 % Normal 11.0-15.0 [facility] Comment on above: Performed By: #### D ATCBC #### [facility] [address] [place] [address] Dr. Wilber Curry Hematocrit (Bld) [Volume fraction] 37.6 % Normal 36.0-48.0 [facility] Comment on above: Performed By: #### D ATCBC #### [facility] [address] [place] [address] Dr. Wilber Curry Hemoglobin (Bld) [Mass/Vol] 12.9 g/dL Normal 12.0-16.0 [facility] Comment on above: Performed By: #### D ATCBC #### [facility] [address] [place] [address] Dr. Wilber Curry IG # 0.02 10e3/ul Normal 0.00-0.03 [facility] Comment on above: Performed By: #### D ATCBC #### [facility] [address] [place] [address] Dr. Wilber Curry IG % 0.2 % Normal 0.0-0.5 [facility] Comment on above: Performed By: #### D ATCBC #### [facility] [address] [place] [address] Dr. Wilber Curry LYMPH # 2.4 103/ul Normal 1.2-3.8 [facility] Comment on above: Performed By: #### D ATCBC #### [facility] [address] [place] [address] Dr. Wilber Curry Lymphocytes/100 WBC (Bld) 29.6 % Normal 20.5-60.0 [facility] Comment on above: Performed By: #### D ATCBC #### [facility] [address] [place] [address] Dr. Wilber Curry MCH (RBC) [Entitic mass] 31.6 pg Normal 26.7-34.0 [facility] Comment on above: Performed By: #### D ATCBC #### [facility] [address] [place] [address] Dr. Wilber Curry MCHC (RBC) [Mass/Vol] 34.3 g/dL Normal 29.9-35.2 [facility] Comment on above: Performed By: #### D ATCBC #### [facility] [address] [place] [address] Dr. Wilber Curry MCV (RBC) [Entitic vol] 92.2 fL Normal 81.0-99.0 [facility] Comment on above: Performed By: #### D ATCBC #### [facility] [address] [place] [address] Dr. Wilber Curry MONO # 0.6 103/ul Normal 0.3-0.8 [facility] Comment on above: Performed By: #### D ATCBC #### [facility] [address] [place] [address] Dr. Wilber Curry Monocytes/100 WBC (Bld) 6.9 % Normal 1.7-12.0 [facility] Comment on above: Performed By: #### D ATCBC #### [facility] [address] [place] [address] Dr. Wilber Curry NEUT # 4.8 103/ul Normal 1.4-6.5 [facility] Comment on above: Performed By: #### D ATCBC #### [facility] [address] [place] [address] Dr. Wilber Curry Neutrophils/100 WBC (Bld) 59.0 % Normal 43.0-75.0 [facility] Comment on above: Performed By: #### D ATCBC #### [facility] [address] [place] [address] Dr. Wilber Curry Platelet mean volume (Bld) [Entitic vol] 10.9 fL Normal 9.5-13.5 [facility] Comment on above: Performed By: #### D ATCBC #### [facility] [address] [address] [address] Wilber Curry PLT 270 103/ul Normal 150-450 [facility] Comment on above: Performed By: #### D ATCBC #### [facility] [address] [address] [address] Wilber Curry RBC 4.08 106/ul Critically low 4.20-5.40 [facility] Comment on above: Performed By: #### D ATCBC #### [facility] [address] [address] [address] Wilber Curry WBC 8.2 103/ul Normal 4.0-11.0 [facility] Comment on above: Performed By: #### D ATCBC #### [facility] [address] [place] [address] Dr. Wilber Curry TIFFANIE - TSHon 12-12-2022 TSH 1.211 uIU/mL Normal 0.358-3.740 [facility] Comment on above: Performed By: #### D ATTSH DATBMP #### [facility] [address] [place] [address] Dr. Wilber Curry TSH RANGE SEE BELOW Normal [facility] Comment on above: Result Comment: <0.3 4 UIU/ml HYPERTHYROID 0.34-5.60 UIU/ml EUTHYROID >5.60 UIU/ml HYPOTHYROID Performed By: #### D ATTSH DATBMP #### [facility] [address] [place] [address] Dr. Wilber Curry TIFFANIE- BMP WITH LIPIDon 2022 Anion gap [Moles/Vol] 12.1 mmol/L Normal [facility] Comment on above: Performed By: #### D ATTSH, DATBMP #### [facility] [address] [place] [address] Dr. Wilber Curry Calcium [Mass/Vol] 8.3 mg/dL Critically low 8.5-10.1 [facility] Comment on above: Performed By: #### D ATTSH, DATBMP #### [facility] [address] [address] [address] Wilber Curry Chloride [Moles/Vol] 103 mmol/L Normal 98-107 [facility] Comment on above: Performed By: #### D ATTJUAN DANIEL, DATBMP #### [facility] [address] [address] [address] Wilber Curry Cholesterol [Mass/Vol] 147 mg/dL Normal <=200 [facility] Comment on above: Performed By: #### D ATTSH, DATBMP #### [facility] [address] [address] [address] Wilber Curry Cholesterol in HDL [Mass/Vol] 48 mg/dL Normal 40-60 [facility] Comment on above: Performed By: #### D ATTJUAN DANIEL, DATBMP #### [facility] [address] [address] [address] Wilber Curry Cholesterol in LDL [Mass/Vol] 34.6 mg/dL Normal [facility] Comment on above: Performed By: #### D ATTJUAN DANIEL, DATBMP #### [facility] [address] [address] [address] Wilber Curry CO2 [Moles/Vol] 26.4 mmol/L Normal 21.0-32.0 [facility] Comment on above: Performed By: #### D ATTJUAN DANIEL, DATBMP #### [facility] [address] [place] [address] Dr. Wilber Curry Creatinine [Mass/Vol] 0.79 mg/dL Normal 0.55-1.02 [facility] Comment on above: Performed By: #### D ATTSH, DATBMP #### [facility] [address] [address] [address] Wilber Curry EGFR-AF OMANI >60 Normal >=60 [facility] Comment on above: Performed By: #### D ATTSH, DATBMP #### [facility] [address] [address] [address] Wilber Curry EGFR-NON AF OMANI >60 Normal >=60 [facility] Comment on above: Performed By: #### D ATTSH, DATBMP #### [facility] [address] [address] [address] Wilber Curry Glucose [Mass/Vol] 95 mg/dL Normal 74-106 [facility] Comment on above: Performed By: #### D JUSTIN DATBMP #### [facility] [address] [address] [address] Wilber Curry HDL NORMAL > or = 60 mg/dl - LO W CARDIOVASCULAR RISK <40 mg/dl - HIGH CARDIOVASCULAR RISK Normal [facility] Comment on above: Performed By: #### D JUSTIN DATBMP #### [facility] [address] [address] [address] Wilber Curry LDL CALC NORMAL SEE BELOW Normal [facility] Comment on above: Result Comment: <100 mg/dl OPTIMAL 100 - 129 mg/dl NEAR OR ABOVE OPTIMAL 130 - 159 mg/dl BORDERLINE HIGH 160 - 189 mg/dl HIGH >190 mg/dl VERY HIGH Performed By: #### Pelon ANDERSON DATBMP #### [facility] [address] [address] [address] Wilber Curry Potassium [Moles/Vol] 3.5 mmol/L Normal 3.5-5.1 [facility] Comment on above: Performed By: #### D JUSTIN DATBMP #### [facility] [address] [address] [address] Wilber Curry Sodium [Moles/Vol] 138 mmol/L Normal 136-145 [facility] Comment on above: Performed By: #### Pelon ANDERSON DATBMP #### [facility] [address] [address] [address] Wilber Curry Triglyceride [Mass/Vol] 322 mg/dL Critically high <=150 [facility] Comment on above: Performed By: #### D JUSTIN DATBMP #### [facility] [address] [address] [address] Wilber Curry Urea nitrogen [Mass/Vol] 11.0 mg/dL Normal 7.0-18.0 [facility] Comment on above: Performed By: #### Pelon ANDERSON DATBMP #### [facility] [address] [address] [address] Wilber Curry Urea nitrogen/Creatinine [Mass ratio] 13.9 mg/mg Normal [facility] Comment on above: Performed By: #### D JUSTIN DATBMP #### [facility] [address] [address] [address] Wilber Curry VLDL CALC 64.4 mg/dL Normal [facility] Comment on above: Performed By: #### D JUSTIN DATBMP #### [facility] [address] [address] [address] Wilber Curry GLYCOHEMOGLOBIN A1Con 2022 ADA RECOMMENDATION SEE BELOW Normal [facility] Comment on above: Result Comment: ADA RECOMMENDED LIMIT 4.0 - 6.0 ADA THERAPEUTIC TARGET < 7.0 ACTION SUGGESTED > 7.0 Performed By: #### D ATA1C #### [facility] [address] [address] [address] Wilber Curry Glucose [Mass/Vol] 117 mg/dL Normal [facility] Comment on above: Performed By: #### D ATA1C #### [facility] [address] [address] [address] Wilber Curry HbA1c (Bld) [Mass fraction] 5.7 % Normal 4.5-6.2 [facility] Comment on above: Performed By: #### D ATA1C #### [facility] [address] [address] [address] Wilber Curry MG MAMM SCREEN 3D CONRADO CADon 11-01-2022 MG MAMM SCREEN 3D CONRADO CAD Patient: HAM SOLIMAN Exam Date: 11/01/2022 : 1985 Gender:F Ordering : GUANACO WARD Admission #: [id number] Family : Order #: [id number] CLICK HERE TO VIEW EXAM RADIOLOGY REPORT [...] stomach cancer at age 86. LOCATION: [facility] BREAST COMPOSITION: Heterogeneously dense,which may [...] Shin M.D. on 11/01/2022 at 14:43 Normal [facility] US PELVIS AND TRANSVAGon US PELVIS [...] by: SG SHIN Date: 2022-11-01 11:32 Normal [facility] Vital Signs Date Time Vital Sign Value Performing Clinician Facility 01-03-2024 08:43-0400 Body height 166.37 cm [facility] 01-03-2024 08:43-0400 Body mass index (BMI) [Ratio] 36.7 kg/m2 [facility] 01-03-2024 08:43-0400 Body weight 101.6 kg [facility] 01-03-2024 08:43-0400 Diastolic blood pressure 81 mm[Hg] [facility] 01-03-2024 08:43-0400 Heart rate 92 /min [facility] 01-03-2024 08:43-0400 Respiratory rate 12 /min [facility] 01-03-2024 08:43-0400 Systolic blood pressure 125 mm[Hg] [facility] 10-14-2023 15:15-0500 Body height 166.37 cm Agustin Ball Other [facility] 10-14-2023 15:15-0500 Body mass index (BMI) [Ratio] 33.3 kg/m2 Agustin Ball Other [facility] Other 10-14-2023 15:15-0500 Body weight 92.17 kg Agustin Ball Other [facility] Other 10-14-2023 15:15-0500 Body weight 92.16 kg [facility] 10-14-2023 15:15-0500 Diastolic blood pressure 82 mm[Hg] Agustin Ball Other [facility] 10-14-2023 15:15-0500 Respiratory rate 12 /min Agustin Ball Other [facility] Other 10-14-2023 15:15-0500 Systolic blood pressure 116 mm[Hg] Agustin Ball Other [facility] 10-29-2022 10:00-0500 Body height 166.37 cm Jessica Cifuentes Other [facility] Other 10-29-2022 10:00-0500 Body mass index (BMI) [Ratio] 32.61 kg/m2 Jessica Cifuentes Other [facility] Other 10-29-2022 10:00-0500 Body weight 90.27 kg Jessica Cifuentes Other [facility] Other 10-29-2022 10:00-0500 Diastolic blood pressure 82 mm[Hg] Jessica Cifuentes Other [facility] Other 10-29-2022 10:00-0500 SaO2% (BldA) [Mass fraction] 96 % Jessica Cifuentes Other [facility] Other 10-29-2022 10:00-0500 Systolic blood pressure 124 mm[Hg] Jsesica Cifuentes Other [facility] Other Encounters Encounter Date Encounter Type Care Provider Facility Start: 01-03-2024 End: 01-03-2024 ambulatory [facility] Work Phone: Start: 01-03-2024 End: 01-03-2024 Patient encounter procedure [facility] Work Phone: Start: 10-15-2023 End: 10-15-2023 ambulatory Agustin Mendez Other [facility] Other Start: 10-15-2023 Telephone encounter Agustin FIERRO [facility] Start: 10-14-2023 End: 10-14-2023 ambulatory Agustin Mendez Other [facility] Other Start: 10-14-2023 Office outpatient vi sit 15 minutes Agustin Mendez [facility] Start: 10-14-2023 End: 10-14-2023 Patient encounter procedure [facility] Physician Group- Start: 08-20-2023 End: 08-21-2023 ambulatory [facility] Facility[facility] Start: 12-13-2022 End: 12-13-2022 ambulatory Agustin Mendez Other [facility] Other Start: 12-13-2022 Telephone encounter Agustin FIERRO [facility] Start: 12-12-2022 End: 12-13-[address] NONE LISTED REQUEST Facility: Start: 11-01-2022 End: 11-02-[address] DOCTOR BASILIO Facility:[facility] Start: 10-29-2022 End: 10-29-2022 ambulatory Jessica Cifuentes Other [facility] Other Start: 10-29-2022 Office outpatient vi sit 15 minutes Jessica Cifuentes [facility] Start: 07-31-2021 Gynecological examin ation abnormal Agustin Mendez Other [facility] Other Start: 07-31-2021 Gynecological examin ation normal Agustin Mendez Other [facility] Other Plan of Treatment Date Care Activity Detail Author XR Ankle - left GE 3 Views F [facility] XR Foot - left GE 3 Views Fi [facility] Payers Date Payer Category Payer Unknown [id number] 1985 Unknown [id number] [id number] 1958 [employer] [id number] 1958 Self-pay [id number] [employer] [id number] Unknown [id number] [id number] [id number] Unknown [place] [id number] Unknown [place] [id number] Social History Date Type Detail Facility Unknown if ever smoked [facility] Other Sex Assigned At Sex Assigned At Bir th [facility] Other Start: 1985 Sex Assigned At Female F [facility] Evaluation note 10-14-2023 Note Date & Type [...] (ICD-10 - Z79.899) Increases risk for DVT [facility] Other Evaluation note 10-29-2022 Note Date & Type Note Facility 10-29-2022 Evaluation note Encounter Date Diagnosis Assessment Notes Oct, Chronic tonsillar hypertrophy (ICD-10 - J35.1) Pt interested in tonsillectomy . Discussed this is not often done in adults, but she requests referral to Dr. Rose. Her infections have been treated in the past. Relates to snoring and trouble breathing at times. [facility] Other Evaluation note Note Date & Type Note Facility Evaluation note No Information [employer] Other Evaluation note Note Date & Type Note Facility Evaluation note No assessment information [facility] Work Phone: History general Narrative - Reported [...] Surgical menopause Medical History Endometriosis of pel otdd peritoneum, unspecified Medical History HISTORY OF PELVIC [...] removal 05/2019 Hospitalization History SEE SURGICAL HX [facility] Other Reason for visit Narrative Note Date & Type Note Facility Reason for visit Narrative Referral- Pat anuragkrzysztof wanted in now and requested Dr. Cifuentes [facility] Other Reason for Referral Reason 11/21/22 @ 10:50 [facility] [place] [facility] - chronic tonsillitis Diagnosis 1 Chronic tonsillar hy pertrophy (J35.1) Referral Organization [facility] Deborah chong Referring Provider First Name Jessica Referring Provider Last Name Vane Referring Provider Specialty Family [facility] Referred Organization [facility] Referred Provider Vale Rose Referred Address ,[place], [place],[address] Referred Provider Specialty Ear, Nose an d [...] DATE CREATED AUTHOR 12/13/2022 [facility] DATE CREATED AUTHOR AUTHOR'S ORGANIZ ATION 08/25/2023 [facility] REASON FOR VISIT (unrecogniz ed section and content) Lab ResultsLab resultsleft c care home pain Care Teams (unrecognized sec tion [...] BE BASED ON THE PRIMARY CLINICAL RECORDS. [facility] [employer]. provides no warranty or guarantee of the accuracy or completeness of information in this document.
--- NOTE | 2024-02-04 08:00 | CA_ITS ---
Patient Name: HAM SOLIMAN MR#: [id number] : 1985 Exam Date: 02/04/2024 Ordering Doctor: DR Agustin Mendez D.O. ECHOCARDIOGRAM REPORT PROCEDURE: CA ECHO DOPPLER COMPLETE INDICATIONS: Heart murmur, fluid retention COMPARISON: None. DESCRIPTION: COMPLETE ECHOCARDIOGRAM Real-time transthoracic echocardiography with 2D, M-mode, spectral and color flow Doppler performed. QUALITY: Technical quality was good. 67 , 224#, BSA 2.12 m2, BP 110/80 LEFT VENTRICLE: Normal chamber size. Borderline left ventricular hypertrophy. LV EF: Global left ventricular systolic function is normal; visually estimated ejection fraction is 60 to 65%. No obvious wall motion abnormalities. DIASTOLIC: Normal diastolic function. ATRIAL SEPTUM: Visually appears intact. LEFT ATRIUM: Normal chamber size. RIGHT ATRIUM: Normal chamber size. RIGHT VENTRICLE: Normal chamber size. Normal right ventricular systolic function. TRICUSPID VALVE: Normal mobility and thickness. No stenosis with trivial regurgitation. Doppler studies reveal mildly (35-45) elevated right sided pressures. RVSP 45 mmHg MITRAL VALVE: Normal mobility and thickness. No evidence of mitral valve stenosis. There is no mitral annular calcification. No mitral regurgitation. AORTIC VALVE: Normal trileaflet appearance. No visible sclerosis. Normal leaflet mobility. No evidence of aortic valve stenosis. No aortic regurgitation. AORTIC ROOT: Normal diameter and appearance. Ascending aorta is normal in size. PULMONIC VALVE: Normal thickness and mobility. No stenosis. Trivial regurgitation. PERICARDIUM: Trivial pericardial effusion. IVC: Collapses with inspirations. IVC is normal in size. CONCLUSION: 1. Global left ventricular systolic function is normal; visually estimated ejection fraction is 60 to 65% 2. Normal right ventricular size and systolic function 3. Borderline left ventricular hypertrophy 4. Normal diastolic function 5. No significant valvular abnormalities 6. Mildly elevated right ventricular systolic pressure; RVSP 45 mmHg 7. Trivial pericardial effusion Adult Echocardiography Procedure Report Left Ventricle LVEDD (3.7 - 5.6 cm): 4.24 cm LVESD (2.2 - 4.0 cm): 2.94 cm LVIVS thickness (0.6 - 1.2 cm): 1.05 cm LVPW thickness (0.5 - 1.0 cm): 1.03 cm E - e': 4.77 LVOT Max Gradient: 3.00 mm[Hg] LVOT Area (cm2): 0.87 m/s Peak Velocity (LVOT): 0.87 m/s LVOT Diameter 2.11 cm Left Atrium LA Volume Index (2D A2C): 15.74 ml/m2 Left Atrium Systolic Dimension: 3.29 cm Mitral Valve MV E to A Ratio: 1.66 Mitral Valve A-Wave Peak Velocity: 0.44 m/s Mitral Valve E-Wave Peak Velocity: 0.74 m/s Right Ventricle Aorta AO Root Diam: 3.21 cm Ascending Ao Diam: 2.51 cm Aortic Valve AoV Area (Peak Boni): 2.15 cm2, 2.15 cm2 Peak Velocity(Antegrade Flow): 1.40 m/s Peak Gradient(Antegrade Flow): 7.88 mm[Hg] Mean Velocity(Antegrade Flow): 0.96 m/s Mean Gradient(Antegrade Flow): 4.24 mm[Hg] Velocity Time Integral: 31.37 cm Tricuspid Valve Peak Velocity (Regurgitant Flow): 3.25 m/s Pulmonic Valve Peak Gradient: 4.26 mm[Hg], 3.55 mm[Hg] Right Atrium Right Atrium Systolic Pressure: 25.65 ml, 25.65 ml Dictated by: Donn Crowe M.D. on 02/04/2024 at 14:00 Approved by: Donn Crowe M.D. on 02/04/2024 at 14:08
== END 2024-02-04 07:46 | disposition home or self-care (01) ==
LOC: CARD 07:46
PROVIDERS: PCP Internal Medicine; Visit Provider Internal Medicine
DX: R60.9 Edema, unspecified (principal); R53.83 Other fatigue; R01.1 Cardiac murmur, unspecified; R63.5 Abnormal weight gain
CPT/HCPCS: 93306

== ENCOUNTER 2024-02-22 08:32 | Outpatient (OUT) | payer BC, SELFPAY ==
--- NOTE | 2024-02-22 | CT_ITS ---
[address] [address] Patient Name: HAM SOLIMAN MRN: [id number] date: 1985 Sex: F Assigned Patient Location: CT Current Patient Location: Accession/Order Number: [id number] Exam Date: 02/22/2024 09:52 Report Date: 02/24/2024 11:58 At the request of: CARLTON WILSON Procedure: CT abdomen pelvis w con EXAMINATION: CT abdomen pelvis w con HISTORY: Abdomen pain, [place] lower extremity Edema, Wt gain R10.9 R60.0 COMPARISON: CT abdomen and pelvis 09/05/2019 TECHNIQUE: Axial, Coronal, and Sagittal images were obtained without and/or with IV contrast as indicated by examination type. Dose reduction techniques were achieved by using automated exposure control and/or adjustment of mA and/or kV according to patient size and/or use of iterative reconstruction technique. FINDINGS: LUNG BASES: No visible pulmonary or pleural disease. LIVER: No enlargement, atrophy, suspicious density, or significant focal lesion. BILIARY: Cholecystectomy. PANCREAS: No lesion, fluid collection, or abnormal duct dilatation. SPLEEN: No enlargement or focal lesion. ADRENALS: No mass or enlargement. KIDNEYS: No mass, obstruction, or calcification. BOWEL/MESENTERY: No visible mass, obstruction, or bowel wall thickening. AORTA/VASCULAR: No aneurysm or dissection. Unremarkable inferior vena cava and iliac veins. RETROPERITONEUM: No mass or adenopathy. LYMPH NODES: No adenopathy. URINARY BLADDER: No visible focal wall thickening, lesion, or calculus. PELVIC ORGANS: Hysterectomy. ABDOMINAL WALL: Tiny fat filled periumbilical hernia without strangulation. BONES: No bony lesion or fracture. OTHER: Negative. CT/CT abdomen pelvis w con IMPRESSION: 1. No abnormal or suspicious findings to account for patient's symptoms. Electronically authenticated by: JUAN PABLO DESAI Date: 02/24/2024 11:58
--- OUTSIDE RECORDS SUMMARY | 2024-02-22 08:35 | XMS_ITS | CCD ---
Author Organization [facility] Care Team Providers Care Ripsaw Grader Name Role Phone VaneJessica Unavailable REQUEST, DR [...] Dates Sig (Normalized) Sig (Original) estrogens, conjugated (skilled nursing) 0.45 mg oral tablet (6 sources) Estrogen Start: 01-02-2024 take 0.45 mg by mouth once daily Conjugated Estrogens Active 0.45 MG PO Daily January 02, 2024 12:00am take 1 tablet by flory th every twenty-four hours Premarin 0.45 MG 1 tablet Orally Once a day Active omeprazole 20 mg delayed release oral capsule (2 sources) Proton Pump Inhibitor Start: 01-03-2024 take 20 [...] quadrant] Episodic Other aftercare (1 source) Other senior care (current) drug therapy Episodic Other connective tissue disease (1 source) Pain in left lower leg Episodic Other connective tissue disease (2 sources) Foot pain; Translations: [Pain in left foot] 01-03-2024 Episodic Other connective tissue disease (2 sources) Pain in left foot; Translations: [Pain in limb] 01-03-2024 Episodic Other ear and sense organ [...] imaging of breast] Onset: 11-01-2022 Episodic Other skin disorders (1 source) Localized swelling of left foot; Translations: [Localized swelling, mass and lump, left lower limb] 01-03-2024 Episodic Other skin disorders (2 sources) Localized swelling, mass and lump, left lower limb; Translations: [Localized superficial swelling, mass, or lump] 01-03-2024 Episodic Other upper respiratory infections (2 sources) [...] Test Name Value Interpretation Reference Range Facility Laboratory - Hematology and Cell countson 01-24-2024 ESR (Bld) [Velocity] 13 mm/h <=20 [facility] No Panel Informationon 01-23 C-Reactive Protein, Quantitative 0.59 mg/dL <=0.50 [facility] Serum or plasma cyclic adeno sine monophosphate measurement (moles/volume)on 01-24-2024 Adenosine monophosphate.cyclic [Moles/Vol] 4 units 0-19 [facility] Comment on above: Negative <20 Weak po sitive 20 - 39 Moderate positive 40 - 59 Strong positive >59Performed at: [facility] - [facility] [address] [id number] Director: Rodo Lopez PhD, Phone: [phone] Serum or plasma free cefurox thomas measurement (mass/volume)on 01-24-2024 Cefuroxime free [Mass/Vol] Negative Negative [facility] Comment on above: Performed at: [facility] - [facility] [address] [id number] Director: Rodo Lopez PhD, Phone: [phone] Serum or plasma rheumatoid f actor measurement (units/volume)on 01-24-2024 Rheumatoid factor Qn [IU]/mL <14.0 [facility] Comment on above: Performed at: [address] [id number] Director: Rodo Lopze PhD, Phone: [phone] In office Testingon 08-22-20 23 In office Testing [id number] 3#1.00TIFF Normal [facility] Registrationon 08-21-2023 Registration [id number] 5#1.00TIFF Normal [facility] Consenton 08-20-2023 Consent [id number] 1#1.00TIFF Normal [facility] Registrationon 08-20-2023 Registration [id number] 1#1.00TIFF Normal [facility] CBC AUTO DIFFon 12-12-2022 BASO # 0.1 103/ul Normal 0.0-0.1 [facility] Comment on above: Performed By: #### D ATCBC #### [facility] [address] [place] [address] Dr. Wilber Curry Basophils/100 WBC (Bld) 0.6 % Normal 0.2-2.0 [facility] Comment on above: Performed By: #### D ATCBC #### [facility] [address] [address] [address] Wilber Curry EO # 0.3 103/ul Normal 0.0-0.7 [facility] Comment on above: Performed By: #### D ATCBC #### [facility] [address] [place] [address] Dr. Wilber Curry Eosinophils/100 WBC (Bld) 3.7 % Normal 0.9-7.0 [facility] Comment on above: Performed By: #### D ATCBC #### [facility] [address] [place] [address] Dr. Wilber Curry Erythrocyte distribution width (RBC) [Ratio] 13.1 % Normal 11.0-15.0 [facility] Comment on above: Performed By: #### D ATCBC #### [facility] [address] [place] [address] Dr. Wilber Curry Hematocrit (Bld) [Volume fraction] 37.6 % Normal 36.0-48.0 [facility] Comment on above: Performed By: #### D ATCBC #### [facility] [address] [place] [address] Dr. Wilber Curry Hemoglobin (Bld) [Mass/Vol] 12.9 g/dL Normal 12.0-16.0 [facility] Comment on above: Performed By: #### D ATCBC #### [facility] [address] [place] [address] Dr. Wilber Curry IG # 0.02 10e3/ul Normal 0.00-0.03 [facility] Comment on above: Performed By: #### D ATCBC #### [facility] [address] [place] [address] Dr. Wilber Curry IG % 0.2 % Normal 0.0-0.5 [facility] Comment on above: Performed By: #### D ATCBC #### [facility] [address] [place] [address] Dr. Wilber Curry LYMPH # 2.4 103/ul Normal 1.2-3.8 [facility] Comment on above: Performed By: #### D ATCBC #### [facility] [address] [place] [address] Dr. Wilber Curry Lymphocytes/100 WBC (Bld) 29.6 % Normal 20.5-60.0 [facility] Comment on above: Performed By: #### D ATCBC #### [facility] [address] [place] [address] Dr. Wilber Curry MCH (RBC) [Entitic mass] 31.6 pg Normal 26.7-34.0 [facility] Comment on above: Performed By: #### D ATCBC #### [facility] [address] [address] [address] Wilber Curry MCHC (RBC) [Mass/Vol] 34.3 g/dL Normal 29.9-35.2 [facility] Comment on above: Performed By: #### D ATCBC #### [facility] [address] [address] [address] Wilber Curry MCV (RBC) [Entitic vol] 92.2 fL Normal 81.0-99.0 [facility] Comment on above: Performed By: #### D ATCBC #### [facility] [address] [place] [address] Dr. Wilber Curry MONO # 0.6 103/ul Normal 0.3-0.8 [facility] Comment on above: Performed By: #### D ATCBC #### [facility] [address] [place] [address] Dr. Wilber Curry Monocytes/100 WBC (Bld) 6.9 % Normal 1.7-12.0 [facility] Comment on above: Performed By: #### D ATCBC #### [facility] [address] [place] [address] Dr. Wilber Curry NEUT # 4.8 103/ul Normal 1.4-6.5 [facility] Comment on above: Performed By: #### D ATCBC #### [facility] [address] [place] [address] Dr. Wilber Curry Neutrophils/100 WBC (Bld) 59.0 % Normal 43.0-75.0 [facility] Comment on above: Performed By: #### D ATCBC #### [facility] [address] [place] [address] Dr. Wilber Curry Platelet mean volume (Bld) [Entitic vol] 10.9 fL Normal 9.5-13.5 [facility] Comment on above: Performed By: #### D ATCBC #### [facility] [address] [place] [address] Dr. Wilber Curry PLT 270 103/ul Normal 150-450 [facility] Comment on above: Performed By: #### D ATCBC #### [facility] [address] [place] [address] Dr. Wilber Curry RBC 4.08 106/ul Critically low 4.20-5.40 [facility] Comment on above: Performed By: #### D ATCBC #### [facility] [address] [place] [address] Dr. Wilber Curry WBC 8.2 103/ul Normal 4.0-11.0 [facility] Comment on above: Performed By: #### D ATCBC #### [facility] [address] [place] [address] Dr. Wilber Curry TIFFANIE - TSHon 12-12-2022 TSH 1.211 uIU/mL Normal 0.358-3.740 [facility] Comment on above: Performed By: #### D ATTSH, DATBMP #### [facility] [address] [place] [address] Dr. Wilber Curry TSH RANGE SEE BELOW Normal [facility] Comment on above: Result Comment: <0.3 4 UIU/ml HYPERTHYROID 0.34-5.60 UIU/ml EUTHYROID >5.60 UIU/ml HYPOTHYROID Performed By: #### D ATTJUAN DANIEL, DATBMP #### [facility] [address] [place] [address] Dr. Wilber Curry TIFFANIE- BMP WITH LIPIDon 2022 Anion gap [Moles/Vol] 12.1 mmol/L Normal [facility] Comment on above: Performed By: #### D ATTSH, DATBMP #### [facility] [address] [place] [address] Dr. Wilber Curry Calcium [Mass/Vol] 8.3 mg/dL Critically low 8.5-10.1 [facility] Comment on above: Performed By: #### D ATTSH, DATBMP #### [facility] [address] [place] [address] Dr. Wilber Curry Chloride [Moles/Vol] 103 mmol/L Normal 98-107 [facility] Comment on above: Performed By: #### D ATTSH, DATBMP #### [facility] [address] [address] [address] Wilber Curry Cholesterol [Mass/Vol] 147 mg/dL Normal <=200 [facility] Comment on above: Performed By: #### D ATTSH, DATBMP #### [facility] [address] [address] [address] Wilber Curry Cholesterol in HDL [Mass/Vol] 48 mg/dL Normal 40-60 [facility] Comment on above: Performed By: #### D ATTSH, DATBMP #### [facility] [address] [address] [address] Wilber Curry Cholesterol in LDL [Mass/Vol] 34.6 mg/dL Normal [facility] Comment on above: Performed By: #### D ATTSH, DATBMP #### [facility] [address] [place] [address] Dr. Wilber Curry CO2 [Moles/Vol] 26.4 mmol/L Normal 21.0-32.0 [facility] Comment on above: Performed By: #### D ATTSH, DATBMP #### [facility] [address] [address] [address] Wilber Curry Creatinine [Mass/Vol] 0.79 mg/dL Normal 0.55-1.02 [facility] Comment on above: Performed By: #### D ATTSH, DATBMP #### [facility] [address] [address] [address] Wilber Curry EGFR-AF DANISH >60 Normal >=60 [facility] Comment on above: Performed By: #### D ATTSH, DATBMP #### [facility] [address] [address] [address] Wilber Curry EGFR-NON AF DANISH >60 Normal >=60 [facility] Comment on above: Performed By: #### D ATTSH, DATBMP #### [facility] [address] [address] [address] Wilber Curry Glucose [Mass/Vol] 95 mg/dL Normal 74-106 [facility] Comment on above: Performed By: #### D ATTSH, DATBMP #### [facility] [address] [address] [address] Wilber Curry HDL NORMAL > or = 60 mg/dl - LOW CARDIOVASCULAR RISK <40 mg/dl - HIGH CARDIOVASCULAR RISK Normal [facility] Comment on above: Performed By: #### D ATTSH, DATBMP #### [facility] [address] [address] [address] Wilber Curry LDL CALC NORMAL SEE BELOW Normal [facility] Comment on above: Result Comment: <100 mg/dl OPTIMAL 100 - 129 mg/dl NEAR OR ABOVE OPTIMAL 130 - 159 mg/dl BORDERLINE HIGH 160 - 189 mg/dl HIGH >190 mg/dl VERY HIGH Performed By: #### D ATTSH, DATBMP #### [facility] [address] [address] [address] Wilber Curry Potassium [Moles/Vol] 3.5 mmol/L Normal 3.5-5.1 [facility] Comment on above: Performed By: #### D ATTSH, DATBMP #### [facility] [address] [address] [address] Wilber Curry Sodium [Moles/Vol] 138 mmol/L Normal 136-145 [facility] Comment on above: Performed By: #### D ATTSH, DATBMP #### [facility] [address] [address] [address] Wilber Curry Triglyceride [Mass/Vol] 322 mg/dL Critically high <=150 [facility] Comment on above: Performed By: #### D ATTSH, DATBMP #### [facility] [address] [address] [address] Wilber Curry Urea nitrogen [Mass/Vol] 11.0 mg/dL Normal 7.0-18.0 [facility] Comment on above: Performed By: #### D ATTSH, DATBMP #### [facility] [address] [address] [address] Wilber Curry Urea nitrogen/Creatinine [Mass ratio] 13.9 mg/mg Normal [facility] Comment on above: Performed By: #### D ATTSH, DATBMP #### [facility] [address] [address] [address] Wilber Curry VLDL CALC 64.4 mg/dL Normal [facility] Comment on above: Performed By: #### D ATTSH, DATBMP #### [facility] [address] [address] [address] Wilber Curry GLYCOHEMOGLOBIN A1Con 2022 ADA RECOMMENDATION SEE BELOW Normal [facility] Comment on above: Result Comment: ADA RECOMMENDED LIMIT 4.0 - 6.0 ADA THERAPEUTIC TARGET < 7.0 ACTION SUGGESTED > 7.0 Performed By: #### D ATA1C #### [facility] [address] [place] [address] Dr. Wilber Curry Glucose [Mass/Vol] 117 mg/dL Normal [facility] Comment on above: Performed By: #### D ATA1C #### [facility] [address] [address] [address] Wilber Curry HbA1c (Bld) [Mass fraction] 5.7 % Normal 4.5-6.2 [facility] Comment on above: Performed By: #### D ATA1C #### [facility] [address] [place] [address] Dr. Wilber Curry MG MAMM SCREEN 3D CONRADO CADon 11-01-2022 MG MAMM SCREEN 3D CONRADO CAD Patient: HAM SOLIMAN Exam Date: 11/01/2022 : 1985 Gender:F Ordering : GUANACO WARD Admission #: [id number] Family : Order #: [id number] CLICK HERE TO VIEW EXAM RADIOLOGY REPORT [...] stomach cancer at age 86. LOCATION: [facility] BREAST COMPOSITION: Heterogeneously dense,which may obscure [...] Shin M.D. on 11/01/2022 at 14:43 Normal [facility] US PELVIS AND TRANSVAGon US [...] by: SG SHIN Date: 2022-11-01 11:32 Normal [facility] Vital Signs Date Time Vital Sign Value Performing Clinician Facility 02-14-2024 14:50-0400 Body height 166.37 cm [place] 02-14-2024 14:50-0400 Body mass index (BMI) [Ratio] 37 kg/m2 [facility] 02-14-2024 14:50-040 Body weight 102.73 kg [facility] 02-14-2024 14:50-0400 Diastolic blood pressure 84 mm[Hg] [facility] 02-14-2024 14:50-0400 Heart rate 106 /min [facility] 02-14-2024 14:50-0400 Respiratory rate 12 /min [facility] 02-14-2024 14:50-0400 Systolic blood pressure 121 mm[Hg] [facility] 01-03-2024 08:43-0400 Body height 166.37 cm [facility] 01-03-2024 08:43-0400 Body mass index (BMI) [Ratio] 36.7 kg/m2 [facility] 01-03-2024 08:43-0400 Body weight 101.6 kg [facility] 01-03-2024 08:43-0400 Diastolic blood pressure 81 mm[Hg] [facility] 01-03-2024 08:43-0400 Heart rate 92 /min [facility] 01-03-2024 08:43-0400 Respiratory rate 12 /min [facility] 01-03-2024 08:43-0400 Systolic blood pressure 125 mm[Hg] [facility] 10-14-2023 15:15-0500 Body height 166.37 cm Agustin Ball Other [facility] 10-14-2023 15:15-0500 Body mass index (BMI) [Ratio] 33.3 kg/m2 Agustin Ball Other [facility] Other 10-14-2023 15:15-0500 Body weight 92.17 kg Agustin Ball Other [facility] Other 10-14-2023 15:15-0500 Body weight 92.16 kg [place] 10-14-2023 15:15-0500 Diastolic blood pressure 82 mm[Hg] Agustin Ball Other [facility] 10-14-2023 15:15-0500 Respiratory rate 12 /min Agustin Ball Other [facility] Other 10-14-2023 15:15-0500 Systolic blood pressure 116 mm[Hg] Agustin Ball Other [facility] 02-06-2023 10:00-0500 Body height 166.37 cm Jessica Cifuentes Other [facility] Other 10-29-2022 10:00-0500 Body mass index (BMI) [Ratio] 32.61 kg/m2 Jessica Cifuentes Other [facility] Other 10-29-2022 10:00-0500 Body weight 90.27 kg Jessica Cifuentes Other [facility] Other 10-29-2022 10:00-0500 Diastolic blood pressure 82 mm[Hg] Jessica Cifuentes Other [facility] Other 10-29-2022 10:00-0500 SaO2% (BldA) [Mass fraction] 96 % Jessica Cifuentes Other [facility] Other 10-29-2022 10:00-0500 Systolic blood pressure 124 mm[Hg] Jessica Cifuentes Other [facility] Other Encounters Encounter Date Encounter Type Care Provider Facility Start: 02-14-2024 End: 02-14-2024 ambulatory [facility] Work Phone: Start: 02-14-2024 End: 02-14-2024 Patient encounter procedure [facility] Work Phone: Start: 01-24-2024 Non-patient / [facility] Start: 01-03-2024 End: 01-03-2024 ambulatory [facility] Work Phone: Start: 01-03-2024 End: 01-03-2024 Patient encounter procedure [facility] Work Phone: Start: 10-15-2023 End: 10-15-2023 ambulatory Agustin Mendez Other [facility] Other Start: 10-15-2023 Telephone encounter Agustin Mendez FP [facility] Start: 10-14-2023 End: 10-14-2023 ambulatory Agustin Mendez Other [facility] Other Start: 10-14-2023 Office outpatient vi sit 15 minutes Agustin Mendez [facility] Start: 10-14-2023 End: 10-14-2023 Patient encounter procedure [facility]- Start: 08-20-2023 End: 08-21-2023 ambulatory Rom RICH Facility:[facility] Start: 12-13-2022 End: 12-13-2022 ambulatory Agustin Mendez Other [facility] Other Start: 12-13-2022 Telephone encounter Agustin Mendez FP [facility] Start: 12-12-2022 End: 12-13-[address] GARCIA LISTED REQUEST Facility:[facility] Start: 11-01-2022 End: 11-02-[address] DUPREE [facility] Facility:[facility] Start: 10-29-2022 End: 10-29-2022 ambulatory Jessica Cifuentes Other [facility] Other Start: 10-29-2022 Office outpatient vi sit 15 minutes Jessica Cifuentes [facility] Start: 07-31-2021 Gynecological examin ation abnormal Agustin Ball Other [facility] Other Start: 07-31-2021 Gynecological examin ation normal Agustin Ball Other [facility] Other Plan of Treatment Date Care Activity Detail Author XR Ankle - left GE 3 Views [facility] XR Foot - left GE 3 Views [facility] Payers Date Payer Category Payer Unknown [id number] 1985 Unknown [id number] 1958 [facility] [id number] 1958 Self-pay [id number] [facility] [id number] Unknown [id number] [id number] [id number] Unknown [place] [id number] Unknown [place] [employer] [id number] Social History Date Type Detail Facility Unknown if ever smoked [facility] Other Sex Assigned At Sex Assigned At Bir th [facility] Other Start: 1985 Sex Assigned At Female [facility] Evaluation note 10-14-2023 Note Date & [...] (ICD-10 - Z79.899) Increases risk for DVT [facility] Other Evaluation note 10-29-2022 Note Date & Type Note Facility 10-29-2022 Evaluation note Encounter Date Diagnosis Assessment Notes Oct, Chronic tonsillar hypertrophy (ICD-10 - J35.1) Pt interested in tonsillectomy . Discussed this is not often done in adults, but she requests referral to Dr. Rose. Her infections have been treated in the past. Relates to snoring and trouble breathing at times. [facility] Other Evaluation note Note Date & Type Note Facility Evaluation note No Information [facility] Other Evaluation note Note Date & Type Note Facility Evaluation note No assessment information availa ble [facility] Work Phone: Evaluation note Note Date & Type Note Facility Evaluation note Diagnosis Onset Date Foot pain, left acute Localized swelling of left foot acute Foot pain, left acute Localized swelling of left foot acute [facility] Work Phone: History general Narrative - [...] removal 05/2019 Hospitalization History SEE SURGICAL HX [facility] Other Reason for visit Narrative Note Date & Type Note Facility Reason for visit Narrative Referral- Pat ient wanted in now and requested Dr. Cifuentes [employer] Other Reason for Referral Reason 11/21/22 @ 10:50 [facility] office - chronic tonsillitis Diagnosis 1 Chronic tonsillar hy pertrophy (J35.1) Referral Organization [facility] castillo Referring Provider First Name Jessica Referring Provider Last Name Vane Referring Provider Specialty Family [facility] Referred Organization [facility] Referred Provider [employer] gambino Referred Address ,[place], [place],[address] Referred Provider Specialty Ear, Nose an d [...] Date/ Time Advance Directives No January 02 8:32am Chief Complaint and Reason for Visit Chief Complaint Left Calf Pain lower leg edema Chief Complaint lower leg edema follow up to testing Reason for Visit Foot pain, left Localized swelling of left foot Foot pain, left Localized swelling of left foot Additional Source Comments INFORMATION SOURCE (unrecogn ized section and content) DATE CREATED AUTHOR 12/13/2022 [facility] DATE CREATED AUTHOR AUTHOR'S ORGANIZ ATION 08/25/2023 [facility] REASON FOR VISIT (unrecogniz ed section and content) Lab ResultsLab resultsleft c rachael pain Care Teams (unrecognized sec tion and content) Team Status: Active Member Role Status Dates Agustin Mendez DO Primary Care Provider Active Team Status: Inactive Member Role Status Dates Agustin Mendez DO Attending Provider Active Sta rt: October 14, 2023 End: October 14, 2023 Team Status: Inactive Member Role Status Kimberley Mendez DO Primary Care Provide r, Attending Provider Active Start: January 03, 2024 End: January 03, 2024 Team Status: Active Member Role Status Kimberley Mendez DO Primary Care Provide r, Attending Provider Active Start: January 24, 2024 Team Status: Inactive Member Role Status Kimberley Mendez , Primary Care Provide r, Attending Provider Active Start: February 14, 2024 End: February 14, 2024 Goals (unrecognized section and content) Goals [...] BE BASED ON THE PRIMARY CLINICAL RECORDS. [employer] [facility]. provides no warranty or guarantee of the accuracy or completeness of information in this document.
== END 2024-02-22 08:33 | disposition home or self-care (01) ==
LOC: CT 08:32
PROVIDERS: PCP Internal Medicine; Visit Provider Internal Medicine
DX: R10.9 Unspecified abdominal pain (principal); R60.0 Localized edema; R63.5 Abnormal weight gain
CPT/HCPCS: 74177; Q9967

== ENCOUNTER 2024-04-30 06:09 | Outpatient (OUT) | payer BC, SELFPAY ==
--- OUTSIDE RECORDS SUMMARY | 2024-04-30 06:12 | XMS_ITS | CCD ---
Author Organization [facility] Care Team Providers Care Veneer Jointer Offbearer Name Role Phone VaneJessica Unavailable REQUEST, NONE LISTED Admitting Unavaila ble REQUEST, DR GARCIA LISTED Consulting Unavaila ble REQUEST, DR GARCIA LISTED Attending Unavaila ble BALL, DR VINCENT Primary Care Unavailable MISC, DR DUPREE Attending Unavailable ANDREA, DR VINCENT Primary Care Unavailable MISC, DR DUPREE Admitting Unavailable MISC, DR DUPREE Admitting Unavailable MISC, DR DUPREE Consulting Unavailable MISC, DR DUPREE Attending Unavailable ANDREA, DR VINCENT Primary Care Unavailable ZIEBER, DR SG Echeverria Consulting Unavailable Agustin Mendez Unavailable Rom RICH Attending Unavailable EULALIA CROCKETT Attending Unavailable AGUSTIN MENDEZ Primary Care Unavailable EULALIA CROCKETT Referring Unavailable AGUSTIN MENDEZ Primary Care Unavailable Medications Current Medications Medication Drug Class(es) Dates Sig (Normalized) Sig (Original) estrogens, conjugated (halfway) 0.45 mg oral tablet (6 sources) Estrogen [...] quadrant] Episodic Other aftercare (1 source) Other mcc (current) drug therapy Episodic Other connective tissue [...] sinusitis; Translations: [Acute recurrent maxillary sinusitis] Episodic Pulmonary heart disease (4 sources) Pulmonary hypertension, unspecified; Translations: [Pulmonary hypertension, unspecified (Multi)] Onset: 04-27-2024 Chronic Residual codes; unclassified (1 source) Family history [...] 01-24-2024 ESR (Bld) [Velocity] 13 mm/h <=20 [facility] No Panel Informationon 01-23 C-Reactive Protein, Quantitative 0.59 mg/dL <=0.50 [facility] Serum or plasma cyclic adeno sine monophosphate measurement (moles/volume)on 01-24-2024 Adenosine monophosphate.cyclic [Moles/Vol] 4 units 0-19 [facility] Comment on above: Negative <20 Weak po sitive 20 - 39 Moderate positive 40 - 59 Strong positive >59Performed at: [facility] [id number] Director: Rodo Lopez PhD, Phone: [phone] Serum or plasma free cefurox thomas measurement (mass/volume)on 01-24-2024 Cefuroxime free [Mass/Vol] Negative Negative [facility] Comment on above: Performed at: [address] [place], [place] [id number] Director: Rodo Lopez PhD, Phone: [phone] Serum or plasma rheumatoid f actor measurement (units/volume)on 01-24-2024 Rheumatoid factor Qn [IU]/mL <14.0 [facility] Comment on above: Performed at: [employer] [address] [place], [place] [id number] Director: Rodo Lopez PhD, Phone: [phone] In office Testingon 08-22-20 In office Testing [id number] 3#1.00TIFF Normal [facility] Registrationon 08-21-2023 Registration [id number] 5#1.00TIFF Normal [facility] Consenton 08-20-2023 Consent [id number] 1#1.00TIFF Normal [facility] Registrationon 08-20-2023 Registration [id number] 1#1.00TIFF Normal [facility] CBC AUTO DIFFon 12-12-2022 BASO # 0.1 103/ul Normal 0.0-0.1 [facility] Comment on above: Performed By: #### D ATCBC #### [facility] [address] [address] [address] Wilber Curry Basophils/100 WBC (Bld) 0.6 % Normal 0.2-2.0 [facility] Comment on above: Performed By: #### D ATCBC #### [facility] [address] [address] [address] Wilber Curry EO # 0.3 103/ul Normal 0.0-0.7 [facility] Comment on above: Performed By: #### D ATCBC #### [facility] [address] [place] [address] Dr. Wilber Curry Eosinophils/100 WBC (Bld) 3.7 % Normal 0.9-7.0 [facility] Comment on above: Performed By: #### D ATCBC #### [facility] [address] [place] [address] Dr. Wilber Curry Erythrocyte distribution width (RBC) [Ratio] 13.1 % Normal 11.0-15.0 [facility] Comment on above: Performed By: #### D ATCBC #### [facility] [address] [place] [address] Dr. Wilber Curry Hematocrit (Bld) [Volume fraction] 37.6 % Normal 36.0-48.0 [facility] Comment on above: Performed By: #### D ATCBC #### [facility] [address] [place] [address] Dr. Wilber Curry Hemoglobin (Bld) [Mass/Vol] 12.9 g/dL Normal 12.0-16.0 [facility] Comment on above: Performed By: #### D ATCBC #### [facility] [address] [place] [address] Dr. Wilber Curry IG # 0.02 10e3/ul Normal 0.00-0.03 [facility] Comment on above: Performed By: #### D ATCBC #### [facility] [address] [place] [address] Dr. Wilber Curry IG % 0.2 % Normal 0.0-0.5 [facility] Comment on above: Performed By: #### D ATCBC #### [facility] [address] [place] [address] Dr. Wilber Curry LYMPH # 2.4 103/ul Normal 1.2-3.8 [facility] Comment on above: Performed By: #### D ATCBC #### [facility] [address] [place] [address] Dr. Wilber Curry Lymphocytes/100 WBC (Bld) 29.6 % Normal 20.5-60.0 [facility] Comment on above: Performed By: #### D ATCBC #### [facility] [address] [place] [address] Dr. Wilber Curry MCH (RBC) [Entitic mass] 31.6 pg Normal 26.7-34.0 [facility] Comment on above: Performed By: #### D ATCBC #### [facility] [address] [place] [address] Dr. Wilber Curry MCHC (RBC) [Mass/Vol] 34.3 g/dL Normal 29.9-35.2 [facility] Comment on above: Performed By: #### D ATCBC #### [facility] [address] [place] [address] Dr. Wilber Curry MCV (RBC) [Entitic vol] 92.2 fL Normal 81.0-99.0 [facility] Comment on above: Performed By: #### D ATCBC #### [facility] [address] [place] [address] Dr. Wilber Curry MONO # 0.6 103/ul Normal 0.3-0.8 [facility] Comment on above: Performed By: #### D ATCBC #### [facility] [address] [place] [address] Dr. Wilber Curry Monocytes/100 WBC (Bld) 6.9 % Normal 1.7-12.0 [facility] Comment on above: Performed By: #### D ATCBC #### [facility] [address] [place] [address] Dr. Wilber Curry NEUT # 4.8 103/ul Normal 1.4-6.5 [facility] Comment on above: Performed By: #### D ATCBC #### [facility] [address] [place] [address] Dr. Wilber Curry Neutrophils/100 WBC (Bld) 59.0 % Normal 43.0-75.0 [facility] Comment on above: Performed By: #### D ATCBC #### [facility] [address] [place] [address] Dr. Wilber Curry Platelet mean volume (Bld) [Entitic vol] 10.9 fL Normal 9.5-13.5 [facility] Comment on above: Performed By: #### D ATCBC #### [facility] [address] [place] [address] Dr. Wilber Curry PLT 270 103/ul Normal 150-450 [facility] Comment on above: Performed By: #### D ATCBC #### [facility] [address] [place] [address] Dr. Wilber Curry RBC 4.08 106/ul Critically low 4.20-5.[address] [facility] Comment on above: Performed By: #### D ATCBC #### [facility] [address] [place] [address] Dr. Wilber Curry WBC 8.2 103/ul Normal 4.0-11.0 [facility] Comment on above: Performed By: #### D ATCBC #### [facility] [address] [place] [address] Dr. Wilber Curry TIFFANIE - TSHon 12-12-2022 TSH 1.211 uIU/mL Normal 0.358-3.740 [facility] Comment on above: Performed By: #### D JUSTIN DATBMP #### [facility] [address] [place] [address] Dr. Wilber Curry TSH RANGE SEE BELOW Normal [facility] Comment on above: Result Comment: <0.3 4 UIU/ml HYPERTHYROID 0.34-5.60 UIU/ml EUTHYROID >5.60 UIU/ml HYPOTHYROID Performed By: #### D ATTSH, DATBMP #### [facility] [address] [place] [address] Dr. Wilber Curry TIFFANIE- BMP WITH LIPIDon 2022 Anion gap [Moles/Vol] 12.1 mmol/L Normal [facility] Comment on above: Performed By: #### D ATTSH, DATBMP #### [facility] [address] [place] [address] Dr. Wilber Curry Calcium [Mass/Vol] 8.3 mg/dL Critically low 8.5-10.1 [facility] Comment on above: Performed By: #### D ATTSH, DATBMP #### [facility] [address] [address] [address] Wilber Curry Chloride [Moles/Vol] 103 mmol/L Normal 98-107 [facility] Comment on above: Performed By: #### D ATTSH, DATBMP #### [facility] [address] [address] [address] Wilber Curry Cholesterol [Mass/Vol] 147 mg/dL Normal <=200 [facility] Comment on above: Performed By: #### D ATTSH, DATBMP #### [facility] [address] [address] [address] Wilber Curry Cholesterol in HDL [Mass/Vol] 48 mg/dL Normal 40-60 [facility] Comment on above: Performed By: #### D ATTSH, DATBMP #### [facility] [address] [address] [address] Wilber Curry Cholesterol in LDL [Mass/Vol] 34.6 mg/dL Normal [facility] Comment on above: Performed By: #### D ATTSH, DATBMP #### [facility] [address] [place] [address] Dr. Wilber Curry CO2 [Moles/Vol] 26.4 mmol/L Normal 21.0-32.0 [facility] Comment on above: Performed By: #### D ATTSH, DATBMP #### [facility] [address] [address] [address] Wilber Curry Creatinine [Mass/Vol] 0.79 mg/dL Normal 0.55-1.02 [facility] Comment on above: Performed By: #### D ATTSH, DATBMP #### [facility] [address] [place] [address] Dr. Wilber Curry EGFR-AF [place] CITIZ[place] >60 Normal >=60 [facility] Comment on above: Performed By: #### D ATTSH, DATBMP #### [facility] [address] [address] [address] Wilber Curry EGFR-NON AF [place] CITIZEN >60 Normal >=60 [facility] Comment on above: Performed By: #### D ATTSH, DATBMP #### [facility] [address] [address] [address] Wilber Curry Glucose [Mass/Vol] 95 mg/dL Normal 74-106 [facility] Comment on above: Performed By: #### D ATTSH, DATBMP #### [facility] [address] [address] [address] Wilber Curry HDL NORMAL > or = 60 mg/dl - LOW CARDIOVASCULAR RISK <40 mg/dl - HIGH CARDIOVASCULAR RISK Normal [facility] Comment on above: Performed By: #### D ATTSH, DATBMP #### [facility] [address] [address] [address] Wilber Curry LDL CALC NORMAL SEE BELOW Normal [facility] Comment on above: Result Comment: <100 mg/dl OPTIMAL 100 - 129 mg/dl NEAR OR ABOVE OPTIMAL 130 - 159 mg/dl BORDERLINE HIGH 160 - 189 mg/dl HIGH >190 mg/dl VERY HIGH Performed By: #### D ATTSH, DATBMP #### [facility] [address] [address] [address] Wilber Curry Potassium [Moles/Vol] 3.5 mmol/L Normal 3.5-5.1 [facility] Comment on above: Performed By: #### D ATTSH, DATBMP #### [facility] [address] [address] [address] Wilber Curry Sodium [Moles/Vol] 138 mmol/L Normal 136-145 [facility] Comment on above: Performed By: #### D ATTSH, DATBMP #### [facility] [address] [address] [address] Wilber Curry Triglyceride [Mass/Vol] 322 mg/dL Critically high <=150 [facility] Comment on above: Performed By: #### D ATTSH, DATBMP #### [facility] [address] [address] [address] Wilber Curry Urea nitrogen [Mass/Vol] 11.0 mg/dL Normal 7.0-18.0 [facility] Comment on above: Performed By: #### D ATTSH, DATBMP #### [facility] [address] [address] [address] Wilber Curry Urea nitrogen/Creatinine [Mass ratio] 13.9 mg/mg Normal [facility] Comment on above: Performed By: #### D ATTSH, DATBMP #### [facility] [address] [address] [address] Wilber Curry VLDL CALC 64.4 mg/dL Normal [facility] Comment on above: Performed By: #### D ATTJUAN DANIEL, DATBMP #### [facility] [address] [address] [address] Wilber Curry GLYCOHEMOGLOBIN A1Con 2022 ADA RECOMMENDATION SEE BELOW Normal [facility] Comment on above: Result Comment: ADA RECOMMENDED LIMIT 4.0 - 6.0 ADA THERAPEUTIC TARGET < 7.0 ACTION SUGGESTED > 7.0 Performed By: #### D ATA1C #### [facility] [address] [address] [address] Wilber Curry Glucose [Mass/Vol] 117 mg/dL Normal [facility] Comment on above: Performed By: #### D ATA1C #### [facility] [address] [address] [address] Wilber Curry HbA1c (Bld) [Mass fraction] 5.7 % Normal 4.5-6.2 [facility] Comment on above: Performed By: #### D ATA1C #### [facility] [address] [address] [address] Wilber Curry MG MAMM SCREEN 3D CONRADO CADon 11-01-2022 MG MAMM SCREEN 3D CONRADO CAD Patient: HAM SOLIMAN Exam Date: 11/01/2022 : 1985 Gender:F Ordering : GUANACO WARD Admission #: [id number] Family : Order #: [id number] CLICK HERE TO VIEW EXAM RADIOLOGY REPORT [...] stomach cancer at age 86. LOCATION: [facility] BREAST COMPOSITION: Heterogeneously dense,which may obscure small [...] Shin M.D. on 11/01/2022 at 14:43 Normal [facility] US PELVIS AND TRANSVAGon US [...] by: SG SHIN Date: 2022-11-01 11:32 Normal [facility] Vital Signs Date Time Vital Sign Value Performing Clinician Facility 02-14-2024 14:50-0400 Body height 166.37 cm [facility] 02-14-2024 14:50-0400 Body mass index (BMI) [Ratio] 37 kg/m2 [facility] 02-14-2024 14:50-0400 Body weight 102.73 kg [facility] 02-14-2024 14:50-0400 Diastolic blood pressure 84 mm[Hg] [facility] 02-14-2024 14:50-0400 Heart rate 106 /min [facility] 02-14-2024 14:50-0400 Respiratory rate 12 /min [facility] 02-14-2024 14:50-0400 Systolic blood pressure 121 mm[Hg] [facility] 01-03-2024 08:43-0400 Body height 166.37 cm [facility] 01-03-2024 08:43-0400 Body mass index (BMI) [Ratio] 36.7 kg/m2 [facility] 01-03-2024 08:43-0400 Body weight 101.6 kg [facility] 01-03-2024 08:43-0400 Diastolic blood pressure 81 mm[Hg] [facility] 01-03-2024 08:43-0400 Heart rate 92 /min [facility] 01-03-2024 08:43-0400 Respiratory rate 12 /min [facility] 01-03-2024 08:43-0400 Systolic blood pressure 125 mm[Hg] [facility] 10-14-2023 15:15-0500 Body height 166.37 cm Agustin Ball Other [facility] 10-14-2023 15:15-0500 Body mass index (BMI) [Ratio] 33.3 kg/m2 Agustin Ball Other [facility] [employer] Other 10-14-2023 15:15-0500 Body weight 92.17 kg Agustin Ball Other [facility] [employer] Other 10-14-2023 15:15-0500 Body weight 92.16 kg [facility] 10-14-2023 15:15-0500 Diastolic blood pressure 82 mm[Hg] Agustin Ball Other [facility] 10-14-2023 15:15-0500 Respiratory rate 12 /min Agustin Andrea Other [facility] Other 10-14-2023 15:15-0500 Systolic blood pressure 116 mm[Hg] Agustin Mendez Other [facility] 10-29-2022 10:00-0500 Body height 166.37 cm Jessica Cifuentes Other [facility] Other 10-29-2022 10:00-0500 Body mass index (BMI) [Ratio] 32.61 kg/m2 Jessica Cifuentes Other [facility] Other 10-29-2022 10:00-0500 Body weight 90.27 kg Jessica Cifuentes Other [facility] Other 10-29-2022 10:00-0500 Diastolic blood pressure 82 mm[Hg] Jessica Cifuentes Other [facility] Other 10-29-2022 10:00-0500 SaO2% (BldA) [Mass fraction] 96 % Jessica Cifuentes Other [facility] Other 10-29-2022 10:00-0500 Systolic blood pressure 124 mm[Hg] Jessica Cifuentes Other [facility] Other Encounters Encounter Date Encounter Type Care Provider Facility Start: 04-27-2024 End: 04-27-2024 ambulatory [facility] Start: 02-14-2024 End: 02-14-2024 ambulatory [facility] Work Phone: Start: 02-14-2024 End: 02-14-2024 Patient encounter procedure Counts Include [address] [facility] Work Phone: Start: 01-24-2024 Non-patient / Non-visit Counts Include [address] [facility] Work Phone: Start: 01-03-2024 End: 01-03-2024 ambulatory [facility] Work Phone: Start: 01-03-2024 End: 01-03-2024 Patient encounter procedure Counts Include [address] [facility] Work Phone: Start: 10-15-2023 End: 10-15-2023 ambulatory Agustin Mendez Other [facility] Other Start: 10-15-2023 Telephone encounter Agustin Mendez [facility] Start: 10-14-2023 End: 10-14-2023 ambulatory Agustin Mendez Other [facility] Other Start: 10-14-2023 Office outpatient vi sit 15 minutes Agustin Mendez [facility] Start: 10-14-2023 End: 10-14-2023 Patient encounter procedure Counts Include [address] [facility]- Start: 08-20-2023 End: 08-21-2023 ambulatory Rom RICH Facility:[facility] Start: 12-13-2022 End: 12-13-2022 ambulatory Agustin Mendez Other [facility] Other Start: 12-13-2022 Telephone encounter Agustin FIERRO G [facility] [place] Start: 12-12-2022 End: 12-13-[address] GARCIA LISTED REQUEST Facility: Start: 11-01-2022 End: 11-02-[address] DOCTOR NEGRON Facility:[facility] Start: 10-29-2022 End: 10-29-2022 ambulatory Jessica Cifuentes Other [facility] Other Start: 10-29-2022 Office outpatient vi sit 15 minutes Jessica Cifuentes [facility] Start: 07-31-2021 Gynecological examin ation abnormal Agustin Mendez Other [facility] Other Start: 07-31-2021 Gynecological examin ation normal Agustin Mendez Other [facility] Other Plan of Treatment Date Care Activity Detail Author XR Ankle - left GE 3 Views F [facility] XR Foot - left GE 3 Views Fi [facility] Payers Date Payer Category Payer Unknown [id number] 1985 Unknown [id number] [id number] [id number] 1985 Unknown [id number] 2.16.84 [id number] 1985 Unknown [id number] 1985 Unknown [id number] 1958 [employer] Blue [employer] [id number] 1958 Self-pay [id number] [employer] [id number] Unknown [id number] 2.16.84 [id number] Unknown Yara BC/BS [id number] Social History Date Type Detail Facility Unknown if ever smoked [facility] Other Sex Assigned At Sex Assigned At Bir th [facility] Other Start: 1985 Sex Assigned At Female F [facility] Evaluation note 10-14-2023 Note Date & [...] (ICD-10 - Z79.899) Increases risk for DVT [facility] Other Evaluation note 10-29-2022 Note Date & Type Note Facility 10-29-2022 Evaluation note Encounter Date Diagnosis Assessment Notes Oct, Chronic tonsillar hypertrophy (ICD-10 - J35.1) Pt interested in tonsillectomy . Discussed this is not often done in adults, but she requests referral to Dr. Rose. Her infections have been treated in the past. Relates to snoring and trouble breathing at times. [facility] Other Evaluation note Note Date & Type Note Facility Evaluation note No Information [employer] Other Evaluation note Note Date & Type Note Facility Evaluation note No assessment information availa ble [facility] Work Phone: Evaluation note Note Date & Type Note Facility Evaluation note Diagnosis Onset Date Foot pain, left acute Localized swelling of left foot acute Foot pain, left acute Localized swelling of left foot acute [facility] Work Phone: History general Narrative - [...] removal 05/2019 Hospitalization History SEE SURGICAL HX [facility] Other Reason for visit Narrative Note Date & Type Note Facility Reason for visit Narrative Referral- Pat ient wanted in now and requested Dr. Cifuentes [facility] Other Reason for Referral Reason 11/21/22 @ 10:50 Deborah black office - chronic tonsillitis Diagnosis 1 Chronic tonsillar hy pertrophy (J35.1) Referral Organization [facility] Berenice chong Referring Provider First Name Jessica Referring Provider Last Name Vane Referring Provider Specialty Family [facility] Referred Organization [facility] Referred Provider QamarrafaelVale Referred Address ,[place], [place],[address] Referred Provider Specialty Ear, Nose an d [...] at this time. Summary Purpose Family History No Family History Records Found Relationship Condition Age at Onset Recorded Date/T thomas father Hypertension Unknown Advance Directives No Advanced Directives Records Found Advance Directive Response Recorded Date/ Time Advance Directives No January 02, 024 8:32am Chief Complaint and Reason for Visit Chief Complaint Left Calf Pain lower leg edema Chief Complaint lower leg edema follow up to testing Reason for Visit Foot pain, left Localized swelling of left foot Foot pain, left Localized swelling of left foot Additional Source Comments INFORMATION SOURCE (unrecogn ized section and content) DATE CREATED AUTHOR 12/13/2022 [facility] DATE CREATED AUTHOR AUTHOR'S ORGANIZ ATION 08/25/2023 [facility] DATE CREATED AUTHOR AUTHOR'S ORGANIZ ATION 04/29/2024 [facility] DATE CREATED AUTHOR AUTHOR'S ORGANIZ ATION 04/29/2024 [facility] [facility] REASON FOR VISIT (unrecogniz ed section and [...] 2024 Team Status: Active Member Role Status Dates Agustin Mendez , DO Primary Care Provide r, Attending Provider Active Start: January 24, 2024 Team Status: Inactive Member Role Status Dates Agustin Mendez , DO Primary Care Provide r, Attending Provider [...] BE BASED ON THE PRIMARY CLINICAL RECORDS. [facility] [employer] provides no warranty or guarantee of the accuracy or completeness of information in this document.
--- NOTE | 2024-04-30 06:15 | NM_ITS ---
[address] [address] Patient Name: HAM SOLIMAN MRN: [id number] date: 1985 Sex: F Assigned Patient Location: CT Current Patient Location: CT Accession/Order Number: [id number] Exam Date: 04/30/2024 06:15 Report Date: 04/30/2024 08:03 At the request of: NON-STAFF PHYSICIAN Procedure: NM pul vent and perfuse EXAMINATION: CT pul vent and perfuse HISTORY: PULMONARY HYPERTENSION COMPARISON: No relevant comparison available. TECHNIQUE: After obtaining the patient's consent, a ventilation/perfusion scan was obtained in the usual manner. FINDINGS: VENTILATION: Normal, no significant defects. PERFUSION: Normal, no significant defect. V/Q MISMATCH: None significant. NM/CT pul vent and perfuse IMPRESSION: Normal exam Electronically authenticated by: WILLIAMS SIDDIQI Date: 04/30/2024 08:03
--- NOTE | 2024-04-30 07:15 | XR_ITS ---
The [address] [address] Patient Name: HAM SOLIMAN MRN: [id number] date: 1985 Sex: F Assigned Patient Location: [place] Current Patient Location: [place] Accession/Order Number: [id number] Exam Date: 04/30/2024 07:10 Report Date: 04/30/2024 07:49 At the request of: NON-STAFF PHYSICIAN Procedure: XR chest 2V PROCEDURE: XR chest 2V DATE: 04/30/2024 6:10 AM CDT COMPARISONS: None. CLINICAL INDICATION: 38 years Female PULMONARY HYPERTENSION FINDINGS: The cardiomediastinal silhouette and pulmonary vasculature are within normal limits. The lungs are clear. There is no evidence of pleural effusion or pneumothorax. XR/XR chest 2V IMPRESSION: Chest radiograph is within normal limits. Electronically authenticated by: CARMEN GRAJEDA Date: 04/30/2024 07:49
== END 2024-04-30 06:10 | disposition home or self-care (01) ==
LOC: NM 06:10
DX: I27.20 Pulmonary hypertension, unspecified (principal)
CPT/HCPCS: 71046; 78582; A9540; A9567

== ENCOUNTER 2024-06-06 11:05 | Outpatient (OUT) | payer BC, SELFPAY ==
--- OUTSIDE RECORDS SUMMARY | 2024-06-06 11:19 | XMS_ITS | CCD ---
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 Episodic Other connective tissue [...] 01-24-2024 ESR (Bld) [Velocity] 13 mm/h <=20 [facility] No Panel Informationon 01-23 C-Reactive Protein, Quantitative 0.59 mg/dL <=0.50 [facility] Serum or plasma cyclic adeno sine monophosphate measurement (moles/volume)on 01-24-2024 Adenosine monophosphate.cyclic [Moles/Vol] 4 units 0-19 [facility] Comment on above: Negative <20 Weak po sitive 20 - 39 Moderate positive 40 - 59 Strong positive >59Performed at: CB [facility] [id number] [place], [place] [id number] Director: Rodo Lopez PhD, Phone: [phone] Serum or plasma free cefurox thomas measurement (mass/volume)on 01-24-2024 Cefuroxime free [Mass/Vol] Negative Negative [facility] Comment on above: Performed at: [facility] [id number] [place], [place] [id number] Director: Rodo Lopez PhD, Phone: [phone] Serum or plasma rheumatoid f actor measurement (units/volume)on 01-24-2024 Rheumatoid factor Qn [IU]/mL <14.0 [facility] Comment on above: Performed at: [facility] [id number] [place], [place] [id number] Director: Rodo Lopez PhD, Phone: [phone] In office Testingon 08-22-20 23 In office Testing [id number] 3#1.00TIFF Normal [facility] Registrationon 08-21-2023 Registration [id number] 5#1.00TIFF Normal [facility] Consenton 08-20-2023 Consent [id number] 1#1.00TIFF Normal [facility] Registrationon 08-20-2023 Registration [id number] 1#1.00TIFF Normal [facility] CBC AUTO DIFFon 12-12-2022 BASO # 0.1 103/ul Normal 0.0-0.1 [facility] Comment on above: Performed By: #### D ATCBC #### [facility] [address] [place], [place] [address] Dr. Wilber Curry Basophils/100 WBC (Bld) 0.6 % Normal 0.2-2.0 [facility] Comment on above: Performed By: #### D ATCBC #### [facility] [address] [place] [address] Dr. Wilber Curry EO # 0.3 103/ul Normal 0.0-0.7 [facility] Comment on above: Performed By: #### D ATCBC #### [facility] [address] [place] [address] Dr. Wilber Curry Eosinophils/100 WBC (Bld) 3.7 % Normal 0.9-7.0 [facility] Comment on above: Performed By: #### D ATCBC #### [facility] [address] [place] [address] Dr. Wilber Curry Erythrocyte distribution width (RBC) [Ratio] 13.1 % Normal 11.0-15.0 [facility] Comment on above: Performed By: #### D ATCBC #### [facility] [address] [place] [address] Dr. Wilber Curry Hematocrit (Bld) [Volume fraction] 37.6 % Normal 36.0-48.0 [facility] Comment on above: Performed By: #### D ATCBC #### [facility] [address] [place] [address] Dr. Wilber Curry Hemoglobin (Bld) [Mass/Vol] 12.9 g/dL Normal 12.0-16.0 [facility] Comment on above: Performed By: #### D ATCBC #### [facility] [address] [place] [address] Dr. Wilber Curry IG # 0.02 10e3/ul Normal 0.00-0.03 [facility] Comment on above: Performed By: #### D ATCBC #### [facility] [address] [place] [address] Dr. Wilber Curry IG % 0.2 % Normal 0.0-0.5 [facility] Comment on above: Performed By: #### D ATCBC #### [facility] [address] [place] [address] Dr. Wilber Curry LYMPH # 2.4 103/ul Normal 1.2-3.8 [facility] Comment on above: Performed By: #### D ATCBC #### [facility] [address] [place] [address] Dr. Wilber Curry Lymphocytes/100 WBC (Bld) 29.6 % Normal 20.5-60.0 [facility] Comment on above: Performed By: #### D ATCBC #### [facility] [address] [place] [address] Dr. Wilber Curry MCH (RBC) [Entitic mass] 31.6 pg Normal 26.7-34.0 [facility] Comment on above: Performed By: #### D ATCBC #### [facility] [address] [place] [address] Dr. Wilber Curry MCHC (RBC) [Mass/Vol] 34.3 g/dL Normal 29.9-35.2 [facility] Comment on above: Performed By: #### D ATCBC #### [facility] [address] [place] [address] Dr. Wilber Curry MCV (RBC) [Entitic vol] 92.2 fL Normal 81.0-99.0 [facility] Comment on above: Performed By: #### D ATCBC #### [facility] [address] [place] [address] Dr. Wilber Curry MONO # 0.6 103/ul Normal 0.3-0.8 [facility] Comment on above: Performed By: #### D ATCBC #### [facility] [address] [place] [address] Dr. Wilber Curry Monocytes/100 WBC (Bld) 6.9 % Normal 1.7-12.0 [facility] Comment on above: Performed By: #### D ATCBC #### [facility] [address] [place] [address] Dr. Wilber Curry NEUT # 4.8 103/ul Normal 1.4-6.5 [facility] Comment on above: Performed By: #### D ATCBC #### [facility] [address] [place] [address] Dr. Wilber Curry Neutrophils/100 WBC (Bld) 59.0 % Normal 43.0-75.0 [facility] Comment on above: Performed By: #### D ATCBC #### [facility] [address] [place] [address] Dr. Wilber Curry Platelet mean volume (Bld) [Entitic vol] 10.9 fL Normal 9.5-13.5 [facility] Comment on above: Performed By: #### D ATCBC #### [facility] [address] [place] [address] Dr. Wilber Curry PLT 270 103/ul Normal 150-450 [facility] Comment on above: Performed By: #### D ATCBC #### [facility] [address] [place] [address] Dr. Wilber Curry RBC 4.08 106/ul Critically low 4.20-5.40 [facility] Comment on above: Performed By: #### D ATCBC #### [facility] [address] [place] [address] Dr. Wilber Curry WBC 8.2 103/ul Normal 4.0-11.0 [facility] Comment on above: Performed By: #### D ATCBC #### [facility] [address] [place] [address] Dr. Wilber Curry TIFFANIE - TSHon 12-12-2022 TSH 1.211 uIU/mL Normal 0.358-3.740 [facility] Comment on above: Performed By: #### D ATTSH, DATBMP #### [facility] [address] [place] [address] Dr. Wilber Curry TSH RANGE SEE BELOW Normal [facility] Comment on above: Result Comment: <0.3 4 UIU/ml HYPERTHYROID 0.34-5.60 UIU/ml EUTHYROID >5.60 UIU/ml HYPOTHYROID Performed By: #### D ATTSH, DATBMP #### [facility] [address] [place] [address] Dr. Wilber Curry TIFFANIE- BMP WITH LIPIDon 2022 Anion gap [Moles/Vol] 12.1 mmol/L Normal [facility] Comment on above: Performed By: #### D ATTSH, DATBMP #### [facility] [address] [place] [address] Dr. Wilber Curry Calcium [Mass/Vol] 8.3 mg/dL Critically low 8.5-10.1 [facility] Comment on above: Performed By: #### D ATTJUAN DANIEL, DATBMP #### [facility] [address] [place] [address] [address] Wilber Curry Chloride [Moles/Vol] 103 mmol/L Normal 98-107 [facility] Comment on above: Performed By: #### D ATTJUAN DANIEL, DATBMP #### [facility] [address] [place] [address] [address] Wilber Curry Cholesterol [Mass/Vol] 147 mg/dL Normal <=200 [facility] Comment on above: Performed By: #### D ATTJUAN DANIEL, DATBMP #### [facility] [address] [place] [address] [address] Wilber Curry Cholesterol in HDL [Mass/Vol] 48 mg/dL Normal 40-60 [facility] Comment on above: Performed By: #### D JUSTIN DATBMP #### [facility] [address] [place] [address] [address] Wilber Curry Cholesterol in LDL [Mass/Vol] 34.6 mg/dL Normal [facility] Comment on above: Performed By: #### D JUSTIN DATBMP #### [facility] [address] [place] [address] [address] Wilber Curry CO2 [Moles/Vol] 26.4 mmol/L Normal 21.0-32.0 [facility] Comment on above: Performed By: #### D ATTJUAN DANIEL, DATBMP #### [facility] [address] [place] [address] [address] Wilber Curry Creatinine [Mass/Vol] 0.79 mg/dL Normal 0.55-1.02 [facility] Comment on above: Performed By: #### D ATTJUAN DANIEL, DATBMP #### [facility] [address] [place] [address] [address] Wilber Curry EGFR-AF ERITREAN >60 Normal >=60 [facility] Comment on above: Performed By: #### D ATTJUAN DANIEL, DATBMP #### [facility] [address] [place] [address] [address] Wilber Curry EGFR-NON AF ERITREAN >60 Normal >=60 [facility] Comment on above: Performed By: #### D JUSTIN DATBMP #### [facility] [address] [place] [address] [address] Wilber Curry Glucose [Mass/Vol] 95 mg/dL Normal 74-106 [facility] Comment on above: Performed By: #### D JUSTIN DATBMP #### [facility] [address] [place] [address] [address] Wilber Curry HDL NORMAL > or = 60 mg/dl - LOW CARDIOVASCULAR RISK <40 mg/dl - HIGH CARDIOVASCULAR RISK Normal [facility] Comment on above: Performed By: #### D JUSTIN DATBMP #### [facility] [address] [place] [address] Dr. Wilber Curry LDL CALC NORMAL SEE BELOW Normal [facility] Comment on above: Result Comment: <100 mg/dl OPTIMAL 100 - 129 mg/dl NEAR OR ABOVE OPTIMAL 130 - 159 mg/dl BORDERLINE HIGH 160 - 189 mg/dl HIGH >190 mg/dl VERY HIGH Performed By: #### D JUSTIN DATBMP #### [facility] [address] [place] [address] [address] Wilber Curry Potassium [Moles/Vol] 3.5 mmol/L Normal 3.5-5.1 [facility] Comment on above: Performed By: #### D JUSTIN DATBMP #### [facility] [address] [place] [address] [address] Wilber Curry Sodium [Moles/Vol] 138 mmol/L Normal 136-145 [facility] Comment on above: Performed By: #### D JUSTIN DATBMP #### [facility] [address] [place] [address] [address] Wilber Curry Triglyceride [Mass/Vol] 322 mg/dL Critically high <=150 [facility] Comment on above: Performed By: #### D JUSTIN DATBMP #### [facility] [address] [place] [address] [address] Wilber Curry Urea nitrogen [Mass/Vol] 11.0 mg/dL Normal 7.0-18.0 [facility] Comment on above: Performed By: #### D JUSTIN DATBMP #### [facility] [address] [place] [address] [address] Wilber Curry Urea nitrogen/Creatinine [Mass ratio] 13.9 mg/mg Normal [facility] Comment on above: Performed By: #### D JUSTIN DATBMP #### [facility] [address] [place] [address] [address] Wilber Curry VLDL CALC 64.4 mg/dL Normal [facility] Comment on above: Performed By: #### D TIFFANIE ANDERSONBMP #### [facility] [address] [place] [address] [address] Wilber Curry GLYCOHEMOGLOBIN A1Con 2022 ADA RECOMMENDATION SEE BELOW Normal [facility] Comment on above: Result Comment: ADA RECOMMENDED LIMIT 4.0 - 6.0 ADA THERAPEUTIC TARGET < 7.0 ACTION SUGGESTED > 7.0 Performed By: #### D ATA1C #### [facility] [address] [place] [address] [address] Wilber Curry Glucose [Mass/Vol] 117 mg/dL Normal [facility] Comment on above: Performed By: #### D ATA1C #### [facility] [address] [place] [address] [address] Wilber Curry HbA1c (Bld) [Mass fraction] 5.7 % Normal 4.5-6.2 [facility] Comment on above: Performed By: #### D ATA1C #### [facility] [address] [place] [address] [address] Wilber Curry MG MAMM SCREEN 3D CONRADO CADon 11-01-2022 MG MAMM SCREEN 3D CONRADO CAD Patient: HAM SOLIMAN Exam Date: 11/01/2022 : 1985 Gender:F Ordering : GUANACO WARD Admission #: [id number] Family : Order #: [id number] CLICK HERE TO VIEW EXAM RADIOLOGY REPORT [...] stomach cancer at age 86. LOCATION: [facility] BREAST COMPOSITION: Heterogeneously dense,which may obscure [...] Shin M.D. on 11/01/2022 at 14:43 Normal [facility] US PELVIS AND TRANSVAGon US PELVIS AND [...] by: SG SHIN Date: 2022-11-01 11:32 Normal [facility] Vital Signs Date Time Vital Sign Value Performing Clinician Facility 02-14-2024 14:50-0400 Body height 166.37 cm [facility] 02-14-2024 14:50-0400 Body mass index (BMI) [Ratio] 37 kg/m2 [facility] 02-14-2024 14:50-0400 Body weight 102.73 kg [facility] 02-14-2024 14:50-0400 Diastolic blood pressure 84 mm[Hg] [facility] 02-14-2024 14:50-0400 Heart rate 106 /min [facility] 02-14-2024 14:50-0400 Respiratory rate 12 /min [facility] 02-14-2024 14:50-0400 Systolic blood pressure 121 mm[Hg] [facility] 01-03-2024 08:43-0400 Body height 166.37 cm [facility] 01-03-2024 08:43-0400 Body mass index (BMI) [Ratio] 36.7 kg/m2 [facility] 01-03-2024 08:43-0400 Body weight 101.6 kg [facility] 01-03-2024 08:43-0400 Diastolic blood pressure 81 mm[Hg] [facility] 01-03-2024 08:43-0400 Heart rate 92 /min [facility] 01-03-2024 08:43-0400 Respiratory rate 12 /min [facility] 01-03-2024 08:43-0400 Systolic blood pressure 125 mm[Hg] [facility] 10-14-2023 15:15-0500 Body height 166.37 cm Agustin Ball Other [facility] 10-14-2023 15:15-0500 Body mass index (BMI) [Ratio] 33.3 kg/m2 Agustin Ball Other [facility] [employer] Other 10-14-2023 15:15-0500 Body weight 92.17 kg Agustin Ball Other [facility] Other 10-14-2023 15:15-0500 Body weight 92.16 kg [facility] 10-14-2023 15:15-0500 Diastolic blood pressure 82 mm[Hg] Agustin Ball Other [facility] 10-14-2023 15:15-0500 Respiratory rate 12 /min Agustin Mendez Other [employer] Other 10-14-2023 15:15-0500 Systolic blood pressure 116 mm[Hg] Agustin Mendez Other [facility] 10-29-2022 10:00-0500 Body height 166.37 cm Jessica Cifuentes Other [employer] Other 10-29-2022 10:00-0500 Body mass index (BMI) [Ratio] 32.61 kg/m2 Jessica Cifuentes Other [employer] Other 10-29-2022 10:00-0500 Body weight 90.27 kg Jessica Cifuentes Other [facility] Other 10-29-2022 10:00-0500 Diastolic blood pressure 82 mm[Hg] Jessica Cifuentes Other [facility] [facility] Other 10-29-2022 10:00-0500 SaO2% (BldA) [Mass fraction] 96 % Jessica Cifuentes Other [employer] Other 10-29-2022 10:00-0500 Systolic blood pressure 124 mm[Hg] Jessica Cifuentes Other [employer] Other Encounters Encounter Date Encounter Type Care Provider Facility Start: 05-31-2024 ambulatory AGUSTIN MENDEZ [facility] Start: 04-27-2024 End: 04-27-2024 ambulatory [facility] Start: 02-14-2024 End: 02-14-[address] [facility] Work Phone: Start: 02-14-2024 End: 02-14-2024 Patient encounter procedure [facility] Work Phone: Start: 01-24-2024 Non-patient / Non-visit [facility] [employer] Work Phone: Start: 01-03-2024 End: 01-03-[address] [facility] Work Phone: Start: 01-03-2024 End: 01-03-2024 Patient encounter procedure [facility] Work Phone: Start: 10-15-2023 End: 10-15-2023 ambulatory Agustin Mendez Other [employer] Other Start: 10-15-2023 Telephone encounter Agustin FIERRO G [facility] Start: 10-14-2023 End: 10-14-2023 ambulatory Agustin Mendez Other [employer] Other Start: 10-14-2023 Office outpatient vi sit 15 minutes Agustin Andrea [facility] Start: 10-14-2023 End: 10-14-2023 Patient encounter procedure [facility]- Start: 08-20-2023 End: 08-21-2023 ambulatory Rom RICH Facility:[facility] Start: 12-13-2022 End: 12-13-2022 ambulatory Agustin Mendez Other [employer] Other Start: 12-13-2022 Telephone encounter Agustin FIERRO G [facility] Start: 12-12-2022 End: 12-13-[address] GARCIA LISTED REQUEST Facility:[facility] Start: 11-01-2022 End: 11-02-[address] DUPREE [facility] Facility:[facility] Start: 10-29-2022 End: 10-29-2022 ambulatory Jessica Cifuentes Other [employer] Other Start: 10-29-2022 Office outpatient vi sit 15 minutes Jessica Cifuentes [facility] Start: 07-31-2021 Gynecological examin ation abnormal Agustin Mendez Other [employer] Other Start: 07-31-2021 Gynecological examin ation normal Agustin Ball Other [employer] Other Plan of Treatment Date Care Activity Detail Author XR Ankle - left GE 3 Views [facility] XR Foot - left GE [address] [facility] Payers Date Payer Category Payer Unknown [id number] 1985 Unknown [id number] 2.16.84 [id number] 1985 Unknown [id number] 2.16.84 [id number] 1985 Unknown [id number] 1985 Unknown [id number] 1985 Unknown [id number] 1958 [employer] [id number] 1958 Self-pay [id number] [employer] [id number] Unknown [id number] 2.16.84 [id number] Unknown Yara BC/BS [id number] Social History Date Type Detail Facility Unknown if ever smoked [facility] Other Sex Assigned At Sex Assigned At Bir th [facility] Other Start: 1985 Sex Assigned At Female [facility] Evaluation note 01-22-2024 Note Date & Type Note Facility 10-14-2023 [...] (ICD-10 - Z79.899) Increases risk for DVT [facility] Other Evaluation note 10-29-2022 Note Date & Type Note Facility 10-29-2022 Evaluation note Encounter Date Diagnosis Assessment Notes Oct, Chronic tonsillar hypertrophy (ICD-10 - J35.1) Pt interested in tonsillectomy . Discussed this is not often done in adults, but she requests referral to Dr. Rose. Her infections have been treated in the past. Relates to snoring and trouble breathing at times. [facility] Other Evaluation note Note Date & Type Note Facility Evaluation note No Information [employer] Other Evaluation note Note Date & Type Note Facility Evaluation note No assessment information availa [facility] Work Phone: Evaluation note Note Date & Type Note Facility Evaluation note Diagnosis Onset Date Foot pain, left acute Localized swelling of left foot acute Foot pain, left acute Localized swelling of left foot acute [facility] Work Phone: History general Narrative - [...] removal 05/2019 Hospitalization History SEE SURGICAL HX [facility] Other Reason for visit Narrative Note Date & Type Note Facility Reason for visit Narrative Referral- Pat ient wanted in now and requested Dr. Cifuentes [facility] [facility] Other Reason for Referral Reason 11/21/22 @ 10:50 [facility] - chronic tonsillitis Diagnosis 1 Chronic tonsillar hy pertrophy (J35.1) Referral Organization [facility] castillo Referring Provider First Name Jessica Referring Provider Last Name Vane Referring Provider Specialty Family [facility] Referred Organization [facility] Referred Provider QamarrafaelVale Referred Address ,[place], [place],[address] Referred Provider Specialty Ear, Nose an d [...] section and content) DATE CREATED AUTHOR 12/13/2022 Bill nielsen DATE CREATED AUTHOR AUTHOR'S ORGANIZ ATION 08/25/[address] [facility] DATE CREATED AUTHOR AUTHOR'S ORGANIZ ATION 04/29/2024 [facility] DATE CREATED AUTHOR AUTHOR'S ORGANIZ ATION 06/01/2024 [facility] REASON FOR VISIT (unrecogniz ed section and content) Lab ResultsLab resultsleft c detention pain Care Teams (unrecognized sec tion and content) Team Status: Active Member Role Status Dates Agustin Mendez , Primary Care Provider Active Team Status: Inactive Member Role Status Dates Agustin Mendez , Attending Provider Active Sta rt: October 14, [...] BE BASED ON THE PRIMARY CLINICAL RECORDS. [employer] provides no warranty or guarantee of the accuracy or completeness of information in this document.
[2024-06-06 11:39] LABS: Basophils Absolute Auto 0.1 10^3/uL (0.0-0.1); Basophils Percent Auto 0.7 % (0.2-2.0); Eosinophils Absolute Auto 0.3 10^3/uL (0.0-0.7); Eosinophils Percent Auto 3.8 % (0.9-7.0); Hematocrit 39.6 % (36.0-48.0); Immature Granulocytes Abs Auto 0.01 10^3/uL (0.00-0.03); Immature Granulocytes Pct Auto 0.1 % (0.0-0.5); Lymphocytes Percent Auto 29.3 % (20.5-60.0); Mean Corpuscular HGB Conc 35.4 g/dL (29.9-35.2); Mean Corpuscular Hemoglobin 31.8 pg (26.7-34.0); Mean Platelet Volume 11.3 fL (9.5-13.5); Monocytes Absolute Auto 0.6 10^3/uL (0.3-0.8); Monocytes Percent Auto 8.1 % (1.7-12.0); Neutrophils Absolute Auto 3.9 10^3/uL (1.4-6.5); Platelet Count 284 10^3/uL (150-450); Red Cell Distribution Width 12.5 % (11.0-15.0); White Blood Count 6.8 10^3/uL (4.0-11.0)
[2024-06-06 11:43] LABS: Anion Gap 12.2; BUN Creatinine Ratio 14.9; Calcium 8.7 mg/dL (8.5-10.1); Carbon Dioxide 29.3 mmol/L (21.0-32.0); Chloride 103 mmol/L (98-107); Estimated GFR (African America >60 (>=60); Estimated GFR (Non-African Ame >60 (>=60); Glucose 113 mg/dL (74-106); Potassium 3.5 mmol/L (3.5-5.1); Sodium 141 mmol/L (136-145)
== END 2024-06-06 11:06 | disposition home or self-care (01) ==
LOC: LAB 11:09
DX: Z01.812 Encounter for preprocedural laboratory examination (principal); Z01.818 Encounter for other preprocedural examination
CPT/HCPCS: 36415; 80048; 85025

== ENCOUNTER 2024-07-10 07:46 | Outpatient (OUT) | payer BC, SELFPAY ==
--- NOTE | 2024-07-10 07:49 | CT_ITS ---
The [address] [address] Patient Name: HAM SOLIMAN MRN: [id number] date: 1985 Sex: F Assigned Patient Location: CT Current Patient Location: Accession/Order Number: [id number] Exam Date: 07/10/2024 08:00 Report Date: 07/13/2024 13:31 At the request of: CARLTON WILSON Procedure: CT chest w con EXAMINATION: CT chest w con HISTORY: Pulmonary Hypertension, Dyspnea, Chest Pain COMPARISON: No relevant comparison available. TECHNIQUE: Multi-planar CT images were created with IV contrast. Axial, Coronal, and Sagittal images. Dose reduction techniques were achieved by using automated exposure control and/or adjustment of mA and/or kV according to patient size and/or use of iterative reconstruction technique. FINDINGS: LUNGS: No visible pulmonary disease. PLEURA: No mass, effusion, or pneumothorax. VASCULATURE: Suboptimal opacification of the central pulmonary arterial tree with no filling defect to suggest a pulmonary embolus. Normal pulmonary arterial caliber without enlargement SHAKIR: No mass or adenopathy. MEDIASTINUM: Small amount of soft tissue in the anterior mediastinum could represent residual thymic tissue CARDIAC: No enlargement, pericardial thickening, or significant calcification. AORTA: No aneurysm or dissection. CHEST WALL: No mass or axillary adenopathy. BONES: No bone lesion or fracture. LIMITED ABDOMEN: Surgical clips from cholecystectomy. Diffuse hypoattenuation the liver consistent with hepatic steatosis. Hypodensity in the spleen, a cyst is favored OTHER: Negative. CT/CT chest w con IMPRESSION: No central pulmonary thromboembolic disease No CT evidence of pulmonary hypertension Electronically authenticated by: WILLIAMS SIDDIQI Date: 07/13/2024 13:31
--- OUTSIDE RECORDS SUMMARY | 2024-07-10 07:49 | XMS_ITS | CCD ---
Author Organization [facility] Care Team Providers Care Hall Supervisor Name Role Phone Jessica Cifuentes Unavailable REQUEST, NONE LISTED Admitting Unavaila ble REQUEST, DR GARCIA LISTED Consulting Unavaila ble REQUEST, DR GARCIA LISTED Attending Unavaila ble ANDREA, DR VINCENT Primary Care Unavailable MISC, [...] MATIAS Admitting Unavailable FELICIA MATIAS Attending Unavailable VINCENZO RANGEL Admitting Unav ailVINCENZO Almonte Attending Unav ailAGUSTIN Hinson Primary Care Unavailable Medications Current Medications Medication Drug Class(es) Dates Sig (Normalized) Sig (Original) empagliflozin 10 mg oral tablet (1 source) Sodium-Glucose Cotransporter 2 Inhibitor Start: 06-24-2024 take 1 tablet by mouth once daily Empagliflozin (Jardiance) 10 mg tablet Active 10 MG PO Daily June 24, 2024 12:00am estrogens, conjugated (fpc) 0.45 mg oral tablet (7 sources) Estrogen Start: 01-02-2024 take 0.45 mg by mouth once daily Conjugated Estrogens Active 0.45 MG PO Daily January 02, 2024 12:00am take 1 tablet by flory th every twenty-four hours Premarin 0.45 MG 1 tablet Orally Once a day Active furosemide 20 mg oral tablet (5 sources) Loop Diuretic Start: 03-23-2024 End: 04-10-2024 Furosemide Active 0 .ROUTE .COMPLEX 126 April 10, 2024 11:46am TAKE 1 TABLET BY MOUTH DAILY, ON SATURDAY, SATURDAY, AND SATURDAY, TAKE TWICE A DAY Start: 02-14-2024 End: 03-23-2024 Furosemide Discontinued 20 M G PO .COMPLEX 42 March 16, 2024 1:01pm March 23, 2024 5:15pm 20 mg orally qd, except bid on M,W,F; omeprazole 20 mg delayed release oral capsule (3 sources) Proton Pump Inhibitor Start: 01-03-2024 take 20 mg by mouth once daily Omeprazole Active 20 MG PO Daily January 03, 2024 12:00am microencapsulated potassium chloride 20 meq extended release oral tablet (3 sources) Start: 04-13-2024 Potassium Chloride (Klor-Con M20) 20 mEq tablet,ER particles/beatrice ls Active 20 MEQ PO .COMPLEX 36 90 April 13, 2024 12:00am 20 mEq orally Saturday, Saturday and Saturday; Start: 04-10-2024 End: 04-13-2024 Potassium Chloride (Klor-Con ) 20 mEq packet Discontinued 0 .ROUTE .COMPLEX 36 April 10, 2024 7:28am April 13, 2024 1:13pm TAKE 1 PACKET BY MOUTH ON SATURDAY, SATURDAY, AND SATURDAY Start: 03-16-2024 End: 04-10-2024 take 20 mEq by mouth once daily Potassium Chloride (Klor-Con) 20 mEq packet Discontinued 20 MEQ PO .COMPLEX 09 21March 16, 2024 12:00am April 10, 2024 7:28am 20 mEq orally qd M,W,F; Completed/Discontinued Medications Medication Drug Class(es) Dates Sig (Normalized) Sig (Original) 24 hr buPROPion hydrochloride 300 mg extended release oral tablet (4 sources) Aminoketone take 1 tablet by flory th every twenty-four hours buPROPion HCl ER (XL) 300 MG 1 tablet in the morning Orally Once a day Not-Taking/PRN Problems Active Problems Problem Classification Problem Date Documented Date Episodic/Chronic Abdominal pain (12 sources) Left lower quadrant pain; Translations: [Left lower quadrant pain] Onset: 01-18-2017 02-14-2024 Episodic Acute and chronic tonsillitis (5 sources) [...] the left breast, lower outer quadrant] Episodic Nonspecific chest pain (1 source) Chest pain; Translations: [Chest pain, unspecified] 06-15-2024 Episodic Open wounds of extremities (1 source) Laceration without foreign body of left index finger without damage to nail, initial encounter; Translations: [Open wound of finger(s), without mention of complication] 06-24-2024 Episodic Other aftercare (1 source) 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 Episodic Other connective tissue disease (1 source) Pain in left lower leg Episodic Other connective tissue disease (3 sources) Foot pain; Translations: [Pain in left [...] of vagina] Episodic Other lower respiratory disease (3 sources) Shortness of breath; Translations: [Shortness of breath] Onset: 06-11-2024 Episodic Other lower respiratory disease (1 source) Dyspnea; Translations: [Dyspnea, unspecified] 06-15-2024 Episodic Other nutritional; endocrine; and metabolic disorders (1 source) Obesity; Translations: [Obesity, unspecified] 02-14-2024 Chronic Other nutritional; endocrine; and metabolic disorders (1 source) Weight increased; Translations: [Abnormal weight gain] 02-14-2024 Episodic Other screening for suspected conditions (not mental disorders or infectious disease) (10 sources) Mammography abnormal; Translations: [Other abnormal and inconclusive findings on diagnostic imaging of breast] Onset: 11-01-2022 Episodic Other skin disorders (2 sources) Localized swelling of left foot; Translations: [Localized swelling, mass and lump, left lower limb] 01-03-2024 Episodic Other skin disorders (2 sources) Localized swelling, mass and lump, left lower limb; Translations: [Localized superficial swelling, mass, or lump] 01-03-2024 Episodic Other upper respiratory infections (2 sources) Acute maxillary sinusitis; Translations: [Acute recurrent maxillary sinusitis] Episodic Pulmonary heart disease (7 sources) Pulmonary hypertension, unspecified; Translations: [Pulmonary hypertension] Onset: 04-27-2024 Chronic Residual codes; unclassified (1 source) Family history of malignant neoplasm of breast; Translations: [FAMILY HX MALIG NEOPLASM OF BREAST] Onset: 11-05-2022 Episodic Residual codes; unclassified (1 source) Family history of malignant neoplasm of digestive organs; Translations: [FAM HX MALIG NEOPLASM DIGESTIV ORGN] Onset: 11-05-2022 Episodic Residual codes; unclassified (2 sources) Postprocedural state finding; Translations: [Other specified postprocedural states] Episodic Residual codes; unclassified (1 source) Bilateral lower limb edema; Translations: [Localized edema] 02-14-2024 Episodic Residual codes; unclassified (1 source) Edema, generalized; Translations: [Generalized edema] 06-15-2024 Episodic Substance-related disorders (5 sources) Nicotine dependence; Translations: [Nicotine dependence, cigarettes, with other nicotine-induced disorders] Onset: 03-19-2018 06-15-2024 Chronic Urinary tract infections (2 sources) Chronic [...] Test Name Value Interpretation Reference Range Facility Basic metabolic 2000 panelon 06-11-2024 Anion gap [Moles/Vol] 12 mmol/L Normal 10-20 [facility] Comment on above: Performed By: #### 2 4321-2 #### MICKI OSPINA ([id number]) [facility] ([facility]) [address] [place] [address] Calcium [Mass/Vol] 8.7 mg/dL Normal 8.6-10.3 [facility] Comment on above: Performed By: #### 2 4321-2 #### MICKI OSPINA ([id number]) [facility] ([facility]) [address] [place] [address] Chloride [Moles/Vol] 105 mmol/L Normal 98-107 [facility] Comment on above: Performed By: #### 2 4321-2 #### MICKI OSPINA ([id number]) [facility] ([facility]) [address] [place] [address] CO2 [Moles/Vol] 25 mmol/L Normal 21-32 [facility] Comment on above: Performed By: #### 2 4321-2 #### MICKI OSPINA ([id number]) [facility] ([facility]) [address] [place] [address] Creatinine [Mass/Vol] 0.76 mg/dL Normal 0.50-1.05 [facility] Comment on above: Performed By: #### 2 4321-2 #### MICKI OSPINA ([id number]) [facility] ([facility]) [address] [place] [address] GFR/1.73 sq M.predicted MDRD (S/P/Bld) [Vol rate/Area] mL/min/{1.73_m2} Normal >60 [facility] Comment on above: Result Comment: Calc ulations of estimated GFR are performed using the 2020 CKD-EPI Study Refit equation without the race variable for the IDMS-Traceable creatinine methods. https://jasn.asnjournals.org/content//ASN.3245362 988 Performed By: #### 2 4321-2 #### MICKI OSPINA ([id number]) [facility] ([facility]) [address] [place] [address] Glucose [Mass/Vol] 113 mg/dL High 74-99 [facility] Comment on above: Performed By: #### 2 4321-2 #### MICKI OSPINA ([id number]) [facility] ([facility]) [address] [place] [address] Potassium [Moles/Vol] 3.5 mmol/L Normal 3.5-5.3 [facility] Comment on above: Performed By: #### 2 4321-2 #### MICKI OSPINA ([id number]) [facility] ([facility]) [address] [place] [address] Sodium [Moles/Vol] 138 mmol/L Normal 136-145 [facility] Comment on above: Performed By: #### 2 4321-2 #### MICKI OSPINA ([id number]) [facility] ([facility]) [address] [place] [address] Urea nitrogen [Mass/Vol] 17 mg/dL Normal 6-23 [facility] Comment on above: Performed By: #### 2 4321-2 #### MICKI OSPINA ([id number]) [facility] ([facility]) [address] [place] [address] CARDIAC CATHETERIZATION PROC EDUREdixie 06-11-2024 CARDIAC CATHETERIZATION PROCEDURE [facility], Robotics Specialist [id number] [place] [address] Cardiovascular Catheterization Report Patient Name: HAM SOLIMAN Performing Physician: [id number] Gonzalez MD Study Date: 06/11/2024 Verifying Physician: Sherry Gonzalez MD MRN/PID: [id number] Small Brake Form Operator/Co-Scru b: Ordering Provider: [id number] EULALIA CROCKETT Date of /Age: 8 1985 / 39 years Small Brake Form Operator: Gender: F Fellow: Surgeon: Study: Right Heart Cath Indications: Procedure Description: After infiltration of local anesthetic, the right brachial vein was cannulated with a micropuncture technique. A 5 Swedish sheath was placed in the vein. A balloon tipped catheter was advanced through the right heart to record pressures. Cardiac output was calculated via the Nuzhat method. Post-procedure, the venous sheath was pulled and pressure was applied to the site. Right Heart Catheterization: A balloon tipped catheter was advanced through the right heart to record pressures. Cardiac output was calculated via the Nuzhat method. Normal filling pressures. Cardiac output is normal. Normal pulmonary vascular resistance. Hemo Personnel: + ---------+---------+ Name Duty + ---------+---------+ Vincenzo Gonzalez MD, MD 1 + ---------+---------+ Hemodynamic Pressures: +----+ +--- ------+ + +---+- ---+-------+-------+ Site Date Time Phase Systolic mmHg Diastolic ED Mean A-Wave V-Wave Name mmHg mmH mmHg mmHg mmHg g +----+ +--- ------+ + +---+- ---+-------+-------+ RA 06/11/2024 AIR REST 2 3 4 2:32:24 PM +----+ +--- ------+ + +---+- ---+-------+-------+ RV 06/11/2024 AIR REST 33 0 8 2:33:37 PM +----+ +--- ------+ + +---+- ---+-------+-------+ PA 06/11/2024 AIR REST 29 10 18 2:35:22 PM +----+ +--- ------+ + +---+- ---+-------+-------+ PA 06/11/2024 AIR REST 31 12 20 2:36:36 PM +----+ +--- ------+ + +---+- ---+-------+-------+ PW 06/11/2024 AIR REST 9 13 12 2:39:19 PM +----+ +--- ------+ + +---+- ---+-------+-------+ PA 06/11/2024 AIR REST 27 13 19 2:40:16 PM +----+ +--- ------+ + +---+- ---+-------+-------+ PW 06/11/2024 AIR REST 8 10 9 2:41:29 PM +----+ +--- ------+ + +---+- ---+-------+-------+ Oxygen Saturation %: + +------- ---+ + Sample Site O2 Sat (%) HB (g/100ml) + +------- ---+ + SYS ART 13.3 + +------- ---+ + SYS LAZARO 13.3 + +------- ---+ + PUL ART 13.3 + +------- ---+ + PUL LAZARO 13.3 + +------- ---+ + AO 92 13.3 + +------- ---+ + SVC 85 13.3 + +------- ---+ + AO 92 13.3 + +------- ---+ + PA 76 13.3 + +------- ---+ + SYS ART 13.3 + +------- ---+ + SYS LAZARO 13.3 + +------- ---+ + PUL ART 13.3 + +------- ---+ + PUL LAZARO 13.3 + +------- ---+ + Cardiac Outputs: + +--- +---- ---+ NUZHAT CO (l/min) NUZHAT CI (l/min/m2) NUZHAT SV + +--- +---- ---+ 21.3 9.9 263.4 + +--- +---- ---+ Vascular Resistance Calculated Values (Wood Units): +-----+---+----+---+ ----+ Phase PVR PVRI TPR TPRI +-----+---+----+---+ ----+ 1 1.0 2.1 1.9 4.2 +-----+---+----+---+ ----+ Cardiac Cath Post Procedure Notes: Post Procedure Diagnosis: Normal cardiac output/index and right heart pressures. Blood Loss: Estimated blood loss during the procedure was 5 mls. Specimens Removed: Number of specimen(s) removed: none. ____ CONCLUSIONS: 1. Normal cardiac output/index. 2. Normal right sided pressures. ICD 10 Codes: Shortness of breath-R06.02 CPT Codes: Right Heart Cath O2/Cardiac output without biopsy (RHC)-87164 [id number] Vincenzo Gonzalez MD Performing Physician Final Normal [facility] CBC panel Auto (Bld)on 06-11 Erythrocyte distribution width (RBC) [Ratio] 12.7 % Normal 11.5-14.5 [facility] Comment on above: Performed By: #### 5 8410-2 #### MICKI OSPINA ([id number]) [facility] ([facility]) [address] [place] [address] Hematocrit (Bld) [Volume fraction] 37.6 % Normal 36.0-46.0 [facility] Comment on above: Performed By: #### 5 8410-2 #### MICKI OPSINA ([id number]) [facility] ([facility]) [address] [place] [address] Hemoglobin (Bld) [Mass/Vol] 13.3 g/dL Normal 12.0-16.0 [facility] Comment on above: Performed By: #### 5 8410-2 #### MICKI OSPINA ([id number]) [facility] ([facility]) [address] [place] [address] MCH (RBC) [Entitic mass] 31.6 pg Normal 26.0-34.0 [facility] Comment on above: Performed By: #### 5 8410-2 #### MICKI OSPINA ([id number]) [facility] ([facility]) [address] [place] [address] MCHC (RBC) [Mass/Vol] 35.4 g/dL Normal 32.0-36.0 [facility] Comment on above: Performed By: #### 5 8410-2 #### MICKI OSPINA ([id number]) [facility] ([facility]) [address] [place] [address] MCV (RBC) [Entitic vol] 89 fL Normal 80-100 [facility] Comment on above: Performed By: #### 5 8410-2 #### MICKI OSPINA ([id number]) [facility] ([facility]) [address] [place] [address] Nucleated RBC/100 WBC (Bld) [Ratio] 0.0 /100 WBCs Normal 0.0-0.0 [facility] Comment on above: Performed By: #### 5 8410-2 #### MICKI OSPINA ([id number]) [facility] ([facility]) [address] [place] [address] Platelets (Bld) [#/Vol] 253 x10*3/uL Normal 150-450 [facility] Comment on above: Performed By: #### 5 8410-2 #### MICKI OSPINA ([id number]) [facility] ([facility]) [address] [place] [address] RBC (Bld) [#/Vol] 4.21 x10*6/uL Normal 4.00-5.20 [facility] Comment on above: Performed By: #### 5 8410-2 #### MICKI OSPINA ([id number]) [facility] ([facility]) [address] [place] [address] WBC (Bld) [#/Vol] 7.1 x10*3/uL Normal 4.4-11.3 [facility] Comment on above: Performed By: #### 5 8410-2 #### MICKI OSPINA ([id number]) [facility] ([facility]) [address] [place] [address] Choriogonadotropin.beta subu niton 06-11-2024 HCG.beta subunit Qn 2 m[IU]/mL Normal <5 [facility] Comment on above: Order Comment: Total HCG measurement is performed using the [employer] Access Immunoassay which detects intact HCG and free beta HCG subunit. This test is not indicated for use as a tumor marker. HCG testing is performed using a different test methodology at [facility] than other [facility]. Direct result comparison should only be made within the same method. Performed By: #### 2 1198-7 #### MICKI OSPINA ([id number]) [facility] ([facility]) [address] [place] [address] Gas panel (BldV)on 4 Base excess Calc (BldV) [Moles/Vol] 1.7 mmol/L Normal -2.0-3.0 [facility] Comment on above: Performed By: #### 2 4339-4 #### MICKI OSPINA ([id number]) [facility] ([facility]) [address] [place] [address] CO2 (BldV) [Partial pressure] 42 mm Hg Normal 41-51 [facility] Comment on above: Performed By: #### 2 4339-4 #### MICKI OSPINA ([id number]) [facility] ([facility]) [address] [place] [address] HCO3 (Bld) [Moles/Vol] 26.6 mmol/L High 22.0-26.0 [facility] Comment on above: Performed By: #### 2 4339-4 #### MICKI OSPINA ([id number]) [facility] ([facility]) [address] [place] [address] Oxygen (BldV) [Partial pressure] 55 mm Hg High 35-45 [facility] Comment on above: Performed By: #### 2 4339-4 #### MICKI OSPINA ([id number]) [facility] ([facility]) [address] [place] [address] Oxygen saturation in Venous blood 85 % High 45-75 [facility] Comment on above: Performed By: #### 2 4339-4 #### MICKI OSPINA ([id number]) [facility] ([facility]) [address] [place] [address] Oxyhemoglobin (BldV) [Mass fraction] 82.8 % High 45.0-75.0 [facility] Comment on above: Performed By: #### 2 4339-4 #### MICKI OSPINA ([id number]) [facility] ([facility]) [address] [place] [address] pH (BldV) 7.41 [pH] Normal 7.33-7.43 [facility] Comment on above: Performed By: #### 2 4339-4 #### MICKI OSPINA ([id number]) [facility] ([facility]) [address] [place] [address] TEST COMMENT SVC Normal [facility] Comment on above: Performed By: #### 2 4339-4 #### MICKI OSPINA ([id number]) [facility] ([facility]) [address] [place] [address] Base excess Calc (BldV) [Moles/Vol] 2.8 mmol/L Normal -2.0-3.0 [facility] Comment on above: Performed By: #### 2 4339-4 #### MICKI OSPINA ([id number]) [facility] ([facility]) [address] [place] [address] CO2 (BldV) [Partial pressure] 40 mm Hg Low 41-51 [facility] Comment on above: Performed By: #### 2 4339-4 #### MICKI OSPINA ([id number]) [facility] ([facility]) [address] [place] [address] HCO3 (Bld) [Moles/Vol] 27.2 mmol/L High 22.0-26.0 [facility] Comment on above: Performed By: #### 2 4339-4 #### MICKI OSPINA ([id number]) [facility] ([facility]) [address] [place] [address] Oxygen (BldV) [Partial pressure] 45 mm Hg Normal 35-45 [facility] Comment on above: Performed By: #### 2 4339-4 #### MICKI OSPINA ([id number]) [facility] ([facility]) [address] [place] [address] Oxygen saturation in Venous blood 76 % High 45-75 [facility] Comment on above: Performed By: #### 2 4339-4 #### MICKI OSPINA ([id number]) [facility] ([facility]) [address] [place] [address] Oxyhemoglobin (BldV) [Mass fraction] 74.1 % Normal 45.0-75.0 [facility] Comment on above: Performed By: #### 2 4339-4 #### MICKI OSPINA ([id number]) [facility] ([facility]) [address] [place] [address] pH (BldV) 7.44 [pH] High 7.33-7.43 [facility] Comment on above: Performed By: #### 2 4339-4 #### MICKI OSPINA ([id number]) [facility] ([facility]) [address] [place] [address] TEST COMMENT PA Normal [facility] Comment on above: Performed By: #### 2 4339-4 #### MICKI BHAVESH ([id number]) [facility] ([facility]) [address] [place] [address] Laboratory - Hematology and Cell countson 01-24-2024 ESR (Bld) [Velocity] 13 mm/h <=20 [facility] No Panel Informationon 01-23 C-Reactive Protein, Quantitative 0.59 mg/dL <=0.50 [facility] Serum or plasma cyclic adeno sine monophosphate measurement (moles/volume)on 01-24-2024 Adenosine monophosphate.cyclic [Moles/Vol] 4 units 0-19 [facility] Comment on above: Negative <20 Weak po sitive 20 - 39 Moderate positive 40 - 59 Strong positive >59Performed at: [employer] [facility] [place], [place] [id number] Director: Rodo Lopez PhD, Phone: [employer] Serum or plasma free cefurox thomas measurement (mass/volume)on 01-24-2024 Cefuroxime free [Mass/Vol] Negative Negative [facility] Comment on above: Performed at: [employer] [place], [place] [id number] Director: Rodo Lopez PhD, Phone: [phone] Serum or plasma rheumatoid f actor measurement (units/volume)on 01-24-2024 Rheumatoid factor Qn [IU]/mL <14.0 [facility] Comment on above: Performed at: [employer] [place], [place] [id number] Director: Rodo Lopez PhD, Phone: [phone] In office Testingon 08-22-20 23 In office Testing [id number] 3#1.00TIFF Normal [facility] Registrationon 08-21-2023 Registration [id number] 5#1.00TIFF Normal [facility] Consenton 08-20-2023 Consent [id number] 1#1.00TIFF Normal [facility] Registrationon 08-20-2023 Registration [id number] 1#1.00TIFF Normal [facility] CBC AUTO DIFFon 12-12-2022 BASO # 0.1 103/ul Normal 0.0-0.1 [facility] Comment on above: Performed By: #### D ATCBC #### [facility] [address] [place] [address] Dr. Wilber Curry Basophils/100 WBC (Bld) 0.6 % Normal 0.2-2.0 [facility] Comment on above: Performed By: #### D ATCBC #### [facility] [address] [place] [address] Dr. Wilber Curry EO # 0.3 103/ul Normal 0.0-0.7 [facility] Comment on above: Performed By: #### D ATCBC #### [facility] [address] [place] [address] Dr. Wilber Curry Eosinophils/100 WBC (Bld) 3.7 % Normal 0.9-7.0 [facility] Comment on above: Performed By: #### D ATCBC #### [facility] [address] [place] [address] Dr. Wilber Curry Erythrocyte distribution width (RBC) [Ratio] 13.1 % Normal 11.0-15.0 [facility] Comment on above: Performed By: #### D ATCBC #### [facility] [address] [place] [address] Dr. Wilber Curry Hematocrit (Bld) [Volume fraction] 37.6 % Normal 36.0-48.0 [facility] Comment on above: Performed By: #### D ATCBC #### [facility] [address] [place] [address] Dr. Wilber Curry Hemoglobin (Bld) [Mass/Vol] 12.9 g/dL Normal 12.0-16.0 [facility] Comment on above: Performed By: #### D ATCBC #### [facility] [address] [place] [address] Dr. Wilber Curry IG # 0.02 10e3/ul Normal 0.00-0.03 [facility] Comment on above: Performed By: #### D ATCBC #### [facility] [address] [place] [address] Dr. Wilber Curry IG % 0.2 % Normal 0.0-0.5 [facility] Comment on above: Performed By: #### D ATCBC #### [facility] [address] [place] [address] Dr. Wilber Curry LYMPH # 2.4 103/ul Normal 1.2-3.8 [facility] Comment on above: Performed By: #### D ATCBC #### [facility] [address] [place] [address] Dr. Wilber Curry Lymphocytes/100 WBC (Bld) 29.6 % Normal 20.5-60.0 [facility] Comment on above: Performed By: #### D ATCBC #### [facility] [address] [place] [address] Dr. Wilber Curry MCH (RBC) [Entitic mass] 31.6 pg Normal 26.7-34.0 [facility] Comment on above: Performed By: #### D ATCBC #### [facility] [address] [place] [address] Dr. Wilber Curry MCHC (RBC) [Mass/Vol] 34.3 g/dL Normal 29.9-35.2 [facility] Comment on above: Performed By: #### D ATCBC #### [facility] [address] [place] [address] Dr. Wilber Curry MCV (RBC) [Entitic vol] 92.2 fL Normal 81.0-99.0 [facility] Comment on above: Performed By: #### D ATCBC #### [facility] [address] [place] [address] Dr. Wilber Curry MONO # 0.6 103/ul Normal 0.3-0.8 [facility] Comment on above: Performed By: #### D ATCBC #### [facility] [address] [place] [address] Dr. Wilber Curry Monocytes/100 WBC (Bld) 6.9 % Normal 1.7-12.0 [facility] Comment on above: Performed By: #### D ATCBC #### [facility] [address] [place] [address] Dr. Wilber Curry NEUT # 4.8 103/ul Normal 1.4-6.5 [facility] Comment on above: Performed By: #### D ATCBC #### [facility] [address] [place] [address] Dr. Wilber Curry Neutrophils/100 WBC (Bld) 59.0 % Normal 43.0-75.0 [facility] Comment on above: Performed By: #### D ATCBC #### [facility] [address] [place] [address] Dr. Wilber Curry Platelet mean volume (Bld) [Entitic vol] 10.9 fL Normal 9.5-13.5 [facility] Comment on above: Performed By: #### D ATCBC #### [facility] [address] [place] [address] Dr. Wilber Curry PLT 270 103/ul Normal 150-450 [facility] Comment on above: Performed By: #### D ATCBC #### [facility] [address] [place] [address] Dr. Wilber Curry RBC 4.08 106/ul Critically low 4.20-5.40 [facility] Comment on above: Performed By: #### D ATCBC #### [facility] [address] [place] [address] Dr. Wilber Curry WBC 8.2 103/ul Normal 4.0-11.0 [facility] Comment on above: Performed By: #### D ATCBC #### [facility] [address] [place] [address] Dr. Wilber Curry TIFFANIE - TSHon 12-12-2022 TSH 1.211 uIU/mL Normal 0.358-3.740 [facility] Comment on above: Performed By: #### D ATTSH, DATBMP #### [facility] [address] [place], [place] [id number] Dr. Wilber Curry TSH RANGE SEE BELOW Normal [facility] Comment on above: Result Comment: <0.3 4 UIU/ml HYPERTHYROID 0.34-5.60 UIU/ml EUTHYROID >5.60 UIU/ml HYPOTHYROID Performed By: #### D ATTSH, DATBMP #### [facility] [address] [place] [address] Dr. Wilber Curry TIFFANIE- BMP WITH LIPIDon 2022 Anion gap [Moles/Vol] 12.1 mmol/L Normal [facility] Comment on above: Performed By: #### D ATTSH, DATBMP #### [facility] [address] [place] [address] Dr. Wilber Curry Calcium [Mass/Vol] 8.3 mg/dL Critically low 8.5-10.1 [facility] Comment on above: Performed By: #### D ATTSH, DATBMP #### [facility] [address] [place] [address] Dr. Wilber Curry Chloride [Moles/Vol] 103 mmol/L Normal 98-107 [facility] Comment on above: Performed By: #### D ATTSH, DATBMP #### [facility] [address] [place] [address] Dr. Wilber Curry Cholesterol [Mass/Vol] 147 mg/dL Normal <=200 [facility] Comment on above: Performed By: #### D ATTSH, DATBMP #### [facility] [address] [place] [address] Dr. Wilber Curry Cholesterol in HDL [Mass/Vol] 48 mg/dL Normal 40-60 [facility] Comment on above: Performed By: #### D ATTSH, DATBMP #### [facility] [address] [place] [address] Dr. Wilber Curry Cholesterol in LDL [Mass/Vol] 34.6 mg/dL Normal [facility] Comment on above: Performed By: #### D ATTSH, DATBMP #### [facility] [address] [place] [address] Dr. Wilber Curry CO2 [Moles/Vol] 26.4 mmol/L Normal 21.0-32.0 [facility] Comment on above: Performed By: #### D ATTJUAN DANIEL DATBMP #### [facility] [address] [address] [address] Wilber Curry Creatinine [Mass/Vol] 0.79 mg/dL Normal 0.55-1.02 [facility] Comment on above: Performed By: #### D ATTJUAN DANIEL, DATBMP #### [facility] [address] [address] [address] Wilber Curry EGFR-AF NORWEGIAN >60 Normal >=60 [facility] Comment on above: Performed By: #### D JUSTIN DATBMP #### [facility] [address] [address] [address] Wilber Curry EGFR-NON AF NORWEGIAN >60 Normal >=60 [facility] Comment on above: Performed By: #### D JUSTIN DATBMP #### [facility] [address] [address] [address] Wilber Curry Glucose [Mass/Vol] 95 mg/dL Normal 74-106 [facility] Comment on above: Performed By: #### D JUSTIN DATBMP #### [facility] [address] [address] [address] Wilber Curry HDL NORMAL > or = 60 mg/dl - LOW CARDIOVASCULAR RISK <40 mg/dl - HIGH CARDIOVASCULAR RISK Normal [facility] Comment on above: Performed By: #### D JUSTIN, DATBMP #### [facility] [address] [address] [address] Wilber Curry LDL CALC NORMAL SEE BELOW Normal [facility] Comment on above: Result Comment: <100 mg/dl OPTIMAL 100 - 129 mg/dl NEAR OR ABOVE OPTIMAL 130 - 159 mg/dl BORDERLINE HIGH 160 - 189 mg/dl HIGH >190 mg/dl VERY HIGH Performed By: #### D ATTJUAN DANIEL, DATBMP #### [facility] [address] [address] [address] Wilber Curry Potassium [Moles/Vol] 3.5 mmol/L Normal 3.5-5.1 [facility] Comment on above: Performed By: #### D ATTJUAN DANIEL DATBMP #### [facility] [address] [address] [address] Wilber Curry Sodium [Moles/Vol] 138 mmol/L Normal 136-145 [facility] Comment on above: Performed By: #### D ATTJUAN DANIEL DATBMP #### [facility] [address] [address] [address] Wilber Curry Triglyceride [Mass/Vol] 322 mg/dL Critically high <=150 [facility] Comment on above: Performed By: #### D ATTJUAN DANIEL DATBMP #### [facility] [address] [place] [address] Dr. Wilber Curry Urea nitrogen [Mass/Vol] 11.0 mg/dL Normal 7.0-18.0 [facility] Comment on above: Performed By: #### D ATTJUAN DANIEL DATBMP #### [facility] [address] [place] [address] Dr. Wilber Curry Urea nitrogen/Creatinine [Mass ratio] 13.9 mg/mg Normal [facility] Comment on above: Performed By: #### D JUSTIN DATBMP #### [facility] [address] [place] [address] Dr. Wilber Curry VLDL CALC 64.4 mg/dL Normal [facility] Comment on above: Performed By: #### D ATTJUAN DANIEL DATBMP #### [facility] [address] [place] [address] Dr. Wilber Curry GLYCOHEMOGLOBIN A1Con 2022 ADA RECOMMENDATION SEE BELOW Normal [facility] Comment on above: Result Comment: ADA RECOMMENDED LIMIT 4.0 - 6.0 ADA THERAPEUTIC TARGET < 7.0 ACTION SUGGESTED > 7.0 Performed By: #### D ATA1C #### [facility] [address] [place] [address] Dr. Wilber Curry Glucose [Mass/Vol] 117 mg/dL Normal [facility] Comment on above: Performed By: #### D ATA1C #### [facility] [address] [place], [place] [id number] Dr. Wilber Curry HbA1c (Bld) [Mass fraction] 5.7 % Normal 4.5-6.2 [facility] Comment on above: Performed By: #### D ATA1C #### [facility] [address] [address] [address] Wilber Curry MG MAMM SCREEN 3D CONRADO CADon 11-01-2022 MG MAMM SCREEN 3D CONRADO CAD Patient: HAM SOLIMAN Exam Date: 11/01/2022 : 1985 Gender:F Ordering : GUANACO WARD Admission #: [id number] Family : Order #: [id number] CLICK HERE TO VIEW EXAM RADIOLOGY REPORT [...] stomach cancer at age 86. LOCATION: [facility] BREAST COMPOSITION: Heterogeneously dense,which may obscure small [...] Shin M.D. on 11/01/2022 at 14:43 Normal [facility] US PELVIS AND TRANSVAGon US PELVIS [...] by: SG SHIN Date: 2022-11-01 11:32 Normal [facility] Vital Signs Date Time Vital Sign Value Performing Clinician Facility 06-24-2024 17:43-0400 Body height 166.37 cm [facility] 06-24-2024 17:43-0400 Body mass index (BMI) [Ratio] 37.5 kg/m2 [facility] 06-24-2024 17:43-0400 Body temperature 98 [degF] [facility] 06-24-2024 17:43-0400 Body weight 104 kg [facility] 06-24-2024 17:43-0400 Diastolic blood pressure 84 mm[Hg] [facility] 06-24-2024 17:43-0400 Heart rate 61 /min [facility] 06-24-2024 17:43-0400 Respiratory rate 18 /min [facility] 06-24-2024 17:43-0400 SaO2% (BldA) [Mass fraction] 97 % [facility] 06-24-2024 17:43-0400 Systolic blood pressure 131 mm[Hg] [facility] 06-11-2024 14:45-0400 Body temperature [facility] Comment on above: Result Comment: NOTE: Patient Results ar e Not Corrected for Temperature Performed By: #### 2 4339-4 #### MICKI OSPINA ([id number]) [facility] ([facility] [address] [place] [address] 06-11-2024 14:42-0400 Body temperature [facility] Comment on above: Result Comment: NOTE: Patient Results ar e Not Corrected for Temperature Performed By: #### 2 4339-4 #### MICKI OSPINA ([id number]) [facility] ([facility]) [address] [place] [address] 02-14-2024 14:50-0400 Body height 166.37 cm [facility] 02-14-2024 14:50-0400 Body mass index (BMI) [Ratio] 37 kg/m2 [facility] 02-14-2024 14:50-0400 Body weight 102.73 kg [facility] 02-14-2024 14:50-0400 Diastolic blood pressure 84 mm[Hg] [facility] 02-14-2024 14:50-0400 Heart rate 106 /min [facility] 02-14-2024 14:50-0400 Respiratory rate 12 /min [facility] 02-14-2024 14:50-0400 Systolic blood pressure 121 mm[Hg] [facility] 01-03-2024 08:43-0400 Body height 166.37 cm [facility] 01-03-2024 08:43-0400 Body mass index (BMI) [Ratio] 36.7 kg/m2 [facility] 01-03-2024 08:43-0400 Body weight 101.6 kg [facility] 01-03-2024 08:43-0400 Diastolic blood pressure 81 mm[Hg] [facility] 01-03-2024 08:43-0400 Heart rate 92 /min [facility] 01-03-2024 08:43-0400 Respiratory rate 12 /min [facility] 01-03-2024 08:43-0400 Systolic blood pressure 125 mm[Hg] [facility] 10-14-2023 15:15-0500 Body height 166.37 cm Agustin Ball Other [facility] 10-14-2023 15:15-0500 Body mass index (BMI) [Ratio] 33.3 kg/m2 Agustin Ball Other [employer] Other 10-14-2023 15:15-0500 Body weight 92.17 kg Agustin Ball Other [facility] [employer] Other 10-14-2023 15:15-0500 Body weight 92.16 kg [facility] 10-14-2023 15:15-0500 Diastolic blood pressure 82 mm[Hg] Agustin Ball Other [facility] 10-14-2023 15:15-0500 Respiratory rate 12 /min Agustin Ball Other [facility] [employer] Other 10-14-2023 15:15-0500 Systolic blood pressure 116 mm[Hg] Agustin Ball Other [facility] 10-29-2022 10:00-0500 Body height 166.37 cm Jessica Cifuentes Other [facility] [employer] Other 10-29-2022 10:00-0500 Body mass index (BMI) [Ratio] 32.61 kg/m2 Jessica Cifuentes Other [employer] Other 10-29-2022 10:00-0500 Body weight 90.27 kg Jessica Cifuentes Other [employer] Other 10-29-2022 10:00-0500 Diastolic blood pressure 82 mm[Hg] Jessica Cifuentes Other [employer] Other 10-29-2022 10:00-0500 SaO2% (BldA) [Mass fraction] 96 % Jessica Cifuentes Other [employer] Other 10-29-2022 10:00-0500 Systolic blood pressure 124 mm[Hg] Jessica Cifuentes Other [employer] Other Encounters Encounter Date Encounter Type Care Provider Facility Start: 06-24-2024 End: 06-24-2024 ambulatory [facility] Work Phone: Start: 06-24-2024 End: 06-24-2024 Patient encounter procedure [facility] Work Phone: Start: 06-11-2024 End: 06-11-2024 ambulatory VINCENZO S [facility] Start: 05-31-2024 ambulatory AGUSTIN MENDEZ [facility] Start: 04-27-2024 End: 04-27-2024 ambulatory [facility] Start: 02-14-2024 End: 02-14-2024 ambulatory [facility] Work Phone: Start: 02-14-2024 End: 02-14-2024 Patient encounter procedure [facility] Work Phone: Start: 01-24-2024 Non-patient / Non-visit [facility] Work Phone: Start: 01-03-2024 End: 01-03-2024 ambulatory [facility] Work Phone: Start: 01-03-2024 End: 01-03-2024 Patient encounter procedure [facility] Work Phone: Start: 10-15-2023 End: 10-15-2023 ambulatory Agustin Mendez Other [employer] Other Start: 10-15-2023 Telephone encounter Agustin Mendez [facility] Start: 10-14-2023 End: 10-14-2023 ambulatory Agustin Andrea Other [employer] Other Start: 10-14-2023 Office outpatient vi sit 15 minutes Agustin Mendez [facility] Start: 10-14-2023 End: 10-14-2023 Patient encounter procedure [facility]- Start: 08-20-2023 End: 08-21-2023 ambulatory [facility] Facility:[facility] Start: 12-13-2022 End: 12-13-2022 ambulatory Agustin Mendez Other [employer] Other Start: 12-13-2022 Telephone encounter Agustin Mendez FP [facility] Start: 12-12-2022 End: 12-13-[address] GARCIA LISTED REQUEST Facility:[facility] Start: 11-01-2022 End: 11-02-[address] DOCTOR NEGRON Facility:[facility] Start: 10-29-2022 End: 10-29-2022 ambulatory Jessica Cifuentes Other [employer] Other Start: 10-29-2022 Office outpatient vi sit 15 minutes Jessica Cifuentes [facility] Start: 07-31-2021 Gynecological examination abnormal Agustin Mendez Other [employer] Other Start: 07-31-2021 Gynecological examination normal Agustin Mendez Other [employer] Other Plan of Treatment Date Care Activity Detail Author XR Ankle - left GE 3 Views F [facility] XR Foot - left GE 3 Views Fi [facility] Immunizations Immunization Date Immunization Notes Care Provider Jessica zimmerman 06-24-2024 tetanus toxoid, redu jatin diphtheria toxoid, and acellular pertussis vaccine, adsorbed [facility] Payers Date Payer Category Payer Unknown [id number] 1985 Unknown [id number] [id number] [id number] 1985 Unknown [id number] 2.16.84 [id number] 1985 Unknown [id number] 1985 Unknown [id number] 1985 Unknown [id number] 1985 Unknown [id number] 1958 [facility] [id number] 1958 Self-pay [id number] [facility] [id number] Unknown [id number] 2.16.84 [id number] Unknown Yara BC/BS [id number] Social History Date Type Detail Facility Unknown if ever smoked [employer] Other Sex Assigned At Sex Assigned At Bir th [employer] Other Start: 1985 Sex Assigned At Female F [facility] Start: 06-24-2024 Tobacco smoking status NHIS Never smoked tobacco (finding) [facility] Evaluation note 10-14-2023 Note Date & [...] (ICD-10 - Z79.899) Increases risk for DVT [employer] Other Evaluation note 10-29-2022 Note Date & Type Note Facility 10-29-2022 Evaluation note Encounter Date Diagnosis Assessment Notes Oct, Chronic tonsillar hypertrophy (ICD-10 - J35.1) Pt interested in tonsillectomy . Discussed this is not often done in adults, but she requests referral to Dr. Rose. Her infections have been treated in the past. Relates to snoring and trouble breathing at times. [employer] Other Evaluation note Note Date & Type Note Facility Evaluation note No Information [employer] Other Evaluation note Note Date & Type Note Facility Evaluation note No assessment information availa ble [facility] Work Phone: Evaluation note Note Date & Type Note Facility Evaluation note Diagnosis Onset Date Foot pain, left acute Localized swelling of left foot acute Foot pain, left acute Localized swelling of left foot acute [facility] Work Phone: Evaluation note Note Date & Type Note Facility Evaluation note Diagnosis Onset Date Laceration of left index finger noneactive [facility] Work Phone: History general Narrative [...] removal 05/2019 Hospitalization History SEE SURGICAL HX [employer] Other Reason for visit Narrative Note Date & Type Note Facility Reason for visit Narrative Referral- Pat ient wanted in now and requested Dr. Cifuentes [employer] Other Reason for Referral Reason 11/21/22 @ 10:50 [facility] [place] [facility] - chronic tonsillitis Diagnosis 1 Chronic tonsillar hy pertrophy (J35.1) Referral Organization [facility] Referring Provider First Name Jessica Referring Provider Last Name Vane Referring Provider Specialty Family [facility] Referred Organization [facility] Referred Provider Vale Rose Referred Address ,[place], [place],[address] Referred Provider Specialty Ear, Nose an d Throat Referral Priority Routine Referral Appointment Date 2022-11-21 General Notes IrenaEmmanuel recinosya 11:35:23 AM >received today, attachments made, notes locked and referral faxed P2P Emmanuel Marcanoya 11/05/2022 01:38:35 PM >faxed first attempt letter Daltonlouisjorje Karla 11/06/2022 08:53:54 AM >received fax with appt date and time Jeet Karla 11/22/2022 08:53:18 AM >notes in chart and [...] pain, left Localized swelling of left foot Chief Complaint L index finger lacer ation Reason for Visit Laceration of left i ndex finger Additional Source Comments INFORMATION SOURCE (unrecogn ized section and content) DATE CREATED AUTHOR 12/13/2022 [facility] DATE CREATED AUTHOR AUTHOR'S ORGANIZ ATION 08/25/2023 [facility] DATE CREATED AUTHOR AUTHOR'S ORGANIZ ATION 04/29/2024 [facility] DATE CREATED AUTHOR AUTHOR'S ORGANIZ ATION 06/01/2024 [facility] DATE CREATED AUTHOR AUTHOR'S ORGANIZ ATION 06/16/2024 [facility] REASON FOR VISIT (unrecogniz ed section and [...] February 14, 2024 End: February 14, 2024 Team Status: Inactive Member Role Status Dates Agustin DO Andrea Primary Care Provider Active Start: June 24, 2024 End: June 24, 2024 Aylin Farooq APRN Attending Provider Active S tart: June 24, 2024 End: June 24, 2024 Goals (unrecognized section and content) Goals [...] BE BASED ON THE PRIMARY CLINICAL RECORDS. [facility] [employer] provides no warranty or guarantee of the accuracy or completeness of information in this document.
--- NOTE | 2024-07-10 08:50 | RT_ITS ---
[facility] Test Date: 2024-07-10 Pat Name: HAM SOLIMAN Department: Room: - Gender: Female Private Client Advisor: Alexander Morales RRT : 1985 Requested By: CARLTON WILSON Order Number: [id number] Reading MD: Jorden Garvin Interpretive Statements Pulmonary function testing was completed according to ATS criteria. Findings were considered accurate and reproducible. No bronchodilator was administered due to normal spirometric values. Spirometry: -FEV1/FVC: Normal @ 86% -FEV1: Normal @ 97% -FVC: Normal @ 93% Lung volumes by plethysmography: -RV: Reduced @ 71% -TLC: Normal @ 93% Diffusion capacity: -DLCO: Normal @ 86% when corrected for Hb 14g/dL Impressions: -Normal spirometry and diffusion capacity. There is a mildly decreased RV with normal TLC which can be seen with obesity (stated BMI 39.1). If asthma remains in the differential, may consider methacholine challenge testing. Clinical correlation required. Electronically Signed On 07-14-2024 9:20:20 EDT by Jorden Garvin
== END 2024-07-10 07:47 | disposition home or self-care (01) ==
LOC: CT 07:46
PROVIDERS: PCP Internal Medicine; Visit Provider Internal Medicine
DX: R06.00 Dyspnea, unspecified (principal); I27.20 Pulmonary hypertension, unspecified; R07.9 Chest pain, unspecified; R60.1 Generalized edema; F17.200 Nicotine dependence, unspecified, uncomplicated
CPT/HCPCS: 71260; 94010; 94726; 94729; Q9967